=== PATIENT | male | born 1950 | race Caucasian/White ===

== ENCOUNTER 2020-09-09 13:50 | Emergency (ER) | payer MEDICARE, OTHER, SELFPAY ==
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
[2020-09-09 14:53] VITALS: BP 139/76; PULSE 62; RESP 16; TEMP 36.9; O2SAT 100
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
[2020-09-09] MEDS: HYDROcodone/acetaminophen (*CRX) 5-325 MG TABLET 1 TAB PO (16:56)
[2020-09-09 17:36] VITALS: BP 163/93; PULSE 60; RESP 16; O2SAT 96
== END 2020-09-09 17:39 | disposition home or self-care (01) ==
PROVIDERS: Emergency Provider Family Medicine
DX: S42.291A Other displaced fracture of upper end of right humerus, initial encounter for closed fracture (principal); V18.4XXA Pedal cycle driver injured in noncollision transport accident in traffic accident, initial encounter; Y93.55 Activity, bike riding
CPT/HCPCS: 73030; 99284; A4565; A9270

== ENCOUNTER 2021-06-16 16:42 | Emergency (ER) | payer MEDICARE, OTHER, SELFPAY ==
--- NOTE | 2021-06-16 16:50 | ED.EYEPROB ---
HPI - Eye Problem General Chief complaint: Eye Problems Stated complaint: Eye pain Time Seen by Provider: 06/16/21 16:50 Source: patient and RN notes reviewed History of Present Illness HPI Narrative: Patient is 70-year-old male who presents the urgent care with complaints of left eye irritation. Patient states that it started 1 week ago and he noticed some irritation in the right eye today. Patient denies of any vision change, eye pain, headache or nausea or vomiting. Patient denies of any recent coughing or sneezing. Patient denies of any known trauma to the eye. No other acute complaints. No acute distress noted. Patient aware of the plan of care. Some parts of this dictation were generated by voice recognition software and may contain typographical and/or grammatical inaccuracies. Related Data Home Medications Medication Instructions Recorded Confirmed carbamazepine 100 mg PO BID 09/09/20 09/09/20 dutasteride mg PO 06/16/21 tamsulosin mg PO 06/16/21 Allergies Allergy/AdvReac Type Severity Reaction Status Date / Time No Known Allergies Allergy Verified 09/09/20 16:21 Review of Systems Review of Systems: CONSTITUTIONAL: Denies fever, chills, or sweats. EYES: Reports of redness without pain to the bilateral eyes ENT: Denies rhinorrhea, congestion, sore throat, or otalgia. CARDIOVASCULAR: Denies chest pain, palpitations, or edema. RESPIRATORY: Denies cough or dyspnea. GASTROINTESTINAL: Denies abdominal pain, nausea, vomiting, or diarrhea. GENITOURINARY: Denies dysuria or hematuria. SKIN: Denies rash or itching. MUSCULOSKELETAL: Denies back pain, joint pain, or myalgia. NEUROLOGIC: Denies headache, numbness, or weakness. All other systems reviewed are negative, except as documented in HPI. PMFSH Social History Social History Gender identity (if verbalized by the patient): Male Comments At the time of my signature, I reviewed and agree with the nursing past medical, surgical, social, and family history. There is no relevant family history pertinent to the patient complaint. Exam Narrative: GENERAL: This is a well-nourished, well-developed patient, in no apparent distress. HEAD: normocephalic, atraumatic. EYES: PERRL. Mild erythemic bilateral conjunctiva with notable subconjunctival hemorrhage to 5:00 of the left eye. EARS: External ears normal NOSE: External nose normal with no obvious nasal discharge, nares without redness, no rhinorrhea. THROAT: Mucous membranes moist NECK: Neck supple CARDIOVASCULAR: Regular rate and rhythm without murmurs, gallops, or rubs. RESPIRATORY: Clear to auscultation. Breath sounds equal bilaterally. No wheezes, rales, or rhonchi. SKIN: warm, intact with no suspicious lesions or rash, good texture and turgor. NEURO: awake, alert, and oriented to person, place and time. There were no obvious focal neurologic abnormalities. EXTREMITIES: No clubbing, cyanosis, or edema. Course Course Level of Care: Express Care Visit Vital Signs Vital signs: Vital Signs Temperature 97.4 F L 06/16/21 16:51 Pulse Rate 77 06/16/21 16:51 Respiratory Rate 16 06/16/21 16:51 Blood Pressure 191/97 H 06/16/21 16:51 Pulse Oximetry 100 06/16/21 16:51 Temperature 97.4 F L 06/16/21 16:51 Pulse Rate 77 06/16/21 16:51 Respiratory Rate 16 06/16/21 16:51 Blood Pressure 191/97 H 06/16/21 16:51 Pulse Oximetry 100 06/16/21 16:51 Reviewed-patient is informed that they may have pre-hypertension or hypertension based on a blood pressure reading in the department. I recommend the patient call the primary care provider listed on their discharge instructions or a physician of their choice this week to arrange follow-up for further evaluation of possible pre-hypertension or hypertension. Recheck manual 165/87 MDM - Eye Problem MDM Narrative Medical decision making narrative: Advised patient to use the eyedrops to the bilateral ey
[2021-06-16 16:51] VITALS: BP 191/97; PULSE 77; RESP 16; TEMP 36.3; O2SAT 100
--- NOTE | 2021-06-16 16:58 | PC.NURSE ---
B/p manual re-check. 165/87
== END 2021-06-16 17:10 | disposition home or self-care (01) ==
PROVIDERS: Emergency Provider Nurse Practitioner Family
DX: H11.32 Conjunctival hemorrhage, left eye (principal)
CPT/HCPCS: 99213; G0463

== ENCOUNTER 2023-01-09 11:36 | Emergency (ER) | payer MEDICARE, OTHER, SELFPAY ==
[2023-01-09 11:48] VITALS: BP 127/80; PULSE 72; RESP 16; TEMP 36.8; O2SAT 98
[2023-01-09 11:50] VITALS: BP 127/80; PULSE 72; RESP 16; TEMP 36.8; O2SAT 98
--- NOTE | 2023-01-09 11:57 | ED.MALEGU ---
HPI - Male Genitourinary General Chief complaint: Urogenital-Male Stated complaint: bladder inf Time Seen by Provider: 01/09/23 11:57 Source: patient and RN notes reviewed Mode of arrival: ambulatory Limitations: no limitations History of Present Illness HPI Narrative: 71 y/o male presented for c/o blood in urine this morning. States the first void was red in color, and has subsequently turned brown. Endorses more frequent urination this week and noticeable frequency last night. Denies abdominal pain, flank pain, n/v/d/f/c. LBM this morning, normal. Hx renal stones. Related Data Home Medications Medication Instructions Recorded Confirmed dutasteride 0.5 mg capsule 0.5 mg PO DAILY 06/16/21 01/09/23 tamsulosin 0.4 mg capsule 0.4 mg PO BID 06/16/21 01/09/23 hydrochlorothiazide 12.5 mg capsule 12.5 mg PO DAILY 01/09/23 01/09/23 Allergies Allergy/AdvReac Type Severity Reaction Status Date / Time No Known Allergies Allergy Verified 01/09/23 11:48 Review of Systems Review of Systems: CONSTITUTIONAL: Denies body aches, fever, chills, or sweats. CARDIOVASCULAR: Denies chest pain, palpitations, or edema. RESPIRATORY: Denies cough or dyspnea. GASTROINTESTINAL: Denies abdominal pain, nausea, vomiting, or diarrhea. GENITOURINARY: Reports hematuria, frequency, denies dysuria, urgency, flank pain SKIN: Denies rash, itching, or wounds. MUSCULOSKELETAL: Denies back pain or myalgia. [facility] Past Medical History Medical History (Updated 01/09/23 @ 12:21 by Elana Lucia APRN) Trigeminal neuralgia of right side of face Surgical History Surgical History (Updated 01/09/23 @ 12:18 by Elana Lucia APRN) Hx of brain surgery Social History Social History Gender identity (if verbalized by the patient): Male Comments At time of signature, I have reviewed and agree with nursing past medical, surgical, social and family history unless otherwise noted. Please see nursing chart for further information. There is no relevant family history pertinent to the presenting complaint Exam Narrative: GENERAL: Well-appearing and in no acute distress. HEAD: Normocephalic EYES: EOMI. . ENT: Mucous membranes pink and moist. NECK: Normal AROM. Supple. CHEST: No respiratory distress. Clear to auscultation. HEART: Regular rate and rhythm. ABDOMEN: Soft, nontender, nondistended, normal active bowel sounds. No CVA tenderness SKIN: Warm, dry, no rash. NEURO: No focal deficits. Alert and oriented x3. Gait steady. PSYCH: Normal affect. Course Course Emergency Course: Patient is aware of diagnosis, understands and agrees to treatment plan. Anticipatory guidance given. Patient agrees to follow-up as directed and is aware of reasons to seek care at the emergency department. Portions of this record may have been created with voice recognition software Level of Care: Express Care Visit Vital Signs Vital signs: Vital Signs Temperature 98.3 F 01/09/23 11:48 Pulse Rate 72 01/09/23 11:48 Respiratory Rate 16 01/09/23 11:48 Blood Pressure 127/80 01/09/23 11:48 Pulse Oximetry 98 01/09/23 11:48 Temperature 98.3 F 01/09/23 11:50 Pulse Rate 72 01/09/23 11:50 Respiratory Rate 16 01/09/23 11:50 Blood Pressure 127/80 01/09/23 11:50 Pulse Oximetry 98 01/09/23 11:50 Reviewed MDM - Male Genitourinary MDM Narrative Medical decision making narrative: Discussed physical exam findings. Urine 3+ blood, 2+ protein. Advised ER transfer for painless hematuria. Differential Diagnosis Differential diagnosis: Likely urinary tract infection, urethritis and other (renal stones, bladder mass) Lab Data Labs: Urine Glucose Negative Reference Range: Negative Urine Bilirubin Negative Reference Range: Neg
== END 2023-01-09 12:20 | disposition short-term general hospital (02) ==
PROVIDERS: Emergency Provider Nurse Practitioner Family
DX: R31.9 Hematuria, unspecified (principal)
CPT/HCPCS: 81003; 87086; 99213; G0463

== ENCOUNTER 2023-01-09 12:40 | Emergency (ER) | payer MEDICARE, OTHER, SELFPAY ==
[2023-01-09] VITALS (20 sets, daily range): BP systolic 142–161; BP diastolic 78–98; PULSE 49–67; RESP 12–31; TEMP 36.8; O2SAT 95–100
--- NOTE | ~2023-01-09 | CT_ITS ---
EXAMINATION: CT abdomen pelvis wo con DATE: 01/09/2023 15:03 INDICATION: flank pain and hematuria, h/o kidney stones TECHNIQUE: Computed tomography (CT) of the abdomen and pelvis was performed without intravenous contr ast. Automated exposure control and iterative reconstruction technique were employed. The dose-length product was 161.01 mGy-cm. COMPARISON: 04/09/2019. FINDINGS: Lower thorax: Senescent changes in the lungs. Bibasilar scar. Liver: Normal. Biliary/Gallbladder: Gallbladder is partially contracted. No bile duct dilation. Pancreas: No mass or duct dilation. Spleen: Granulomatous calcifications. Adrenals:No mass. Kidneys: Several bilateral punctate nonobstructing calculi. Subcentimeter left lower pole hyperdensit y, likely hemorrhagic or proteinaceous cyst. Prominent left renal pelvis, unchanged, likely due to ch ronic mild UPJ obstruction. GI tract: No small or large bowel dilation. Normal appendix. Mesentery/Peritoneum: No ascites, mass, or free air. Retroperitoneum: No mass. Atherosclerotic abdominal aortic and/or arterial calcifications. 1.8 cm lef t renal artery aneurysm. Pelvis: Bladder wall thickening. Enlarged prostate. Soft Tissues: Soft tissues and body wall unremarkable. Bones: No acute osseous finding. IMPRESSION: No acute abdominopelvic process detected. Specifically there is no evidence of obstructive urolithias is. Stable mild chronic left UPJ obstruction. Bladder wall thickening may be secondary to chronic outlet obstruction from prostatomegaly or cystiti s. 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 Reviewed, dictated and finalized at location K. IMPRESSION: No acute abdominopelvic process detected. Specifically there is no evidence of obstructive urolithiasis. Stable mild chronic left UPJ obstruction. Bladder wall thickening may be secondary to chronic outlet obstruction from pro statomegaly or cystitis. 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
[2023-01-09 13:00] LABS: Basophils Percent Auto 0.2 % (0.2-1.2); Eosinophils Percent Auto 0.2 % (0-4.4); Hematocrit 41.9 % (42.0-52.0); Hemoglobin 14.9 g/dL (14.0-18.0); Immature Granulocyte Absolute 0.03 K/mm3 (0.00-0.031); Immature Granulocyte Percent A 0.5 % (0-0.5); Lymphocytes Absolute Auto 1.56 K/mm3 (0.9-3.2); Lymphocytes Percent Auto 25.4 % (18.3-44.2); Mean Corpuscular HGB Conc 35.6 g/dl (32-36); Mean Corpuscular Volume 90.1 fl (80-100); Mean Platelet Volume 8.7 fl (7.4-10.4); Monocytes Absolute Auto 0.4 K/mm3 (0.1-0.6); Monocytes Percent Auto 7.2 % (2.6-8.5); Neutrophils Absolute Auto 4.1 K/mm3 (1.3-6.7); Neutrophils Percent Auto 66.5 % (45.5-73.1); Platelet Count Result 246 k/mm3 (150-375); Red Blood Count 4.65 M/mm3 (4.6-6.20); Red Cell Distribution Width 11.9 % (11.5-14.5); White Blood Count 6.2 K/mm3 (4.5-10.0)
[2023-01-09 13:17] LABS: Alanine Aminotransferase 23 U/L (6-50); Albumin Level 4.5 g/dL (3.5-5.1); Alkaline Phosphatase 78 U/L (38-126); Anion Gap 6 mmol/L (8-16); Aspartate Amino Transferase 25 U/L (17-59); Bilirubin,Total 0.5 mg/dL (0.2-1.3); Blood Urea Nitrogen 17 mg/dL (9-20); Calcium 8.9 mg/dL (8.4-10.2); Carbon Dioxide 31 mmol/L (22-30); Chloride 94 mmol/L (98-107); Estimated CRCL calculation 70 ml/min; Estimated Glomerular Filt Rate > 60; Glucose 109 mg/dL (65-110); Sodium 131 mmol/L (137-145)
[2023-01-09 15:31] LABS: Appearance Urine Cloudy (Clear); Bacteria Urine None Seen /hpf; Bilirubin Urine Negative (Negative); Blood Urine 3+ (Negative); Color Urine Yellow (Yellow); Glucose Urine UA Negative (Negative); Ketones Urine Negative (Negative); Leukocyte Esterase Ur Trace LEU/UL (Negative); Nitrate Urine Negative (Negative); Non Pathogenic Casts 0-2; Protein Urine Trace mg/dL (Negative); RBC Urine >100 /hpf (0-2); Specific Grav Ur 1.015 (1.001-1.035); Squamous Epithelial Cell Urine None seen /hpf (Few); Urobilinogen Urine 0.2 mg/dL (<2.0); WBC Urine 0-5 /hpf; pH Urine 6.5 (5.0-9.0)
[2023-01-09 15:32] LABS: Add Urine Microscopic? YES
[2023-01-09] MEDS: CEPHALEXIN 500 MG CAPSULE PO (17:19)
--- NOTE | 2023-01-09 18:41 | ED.MALEGU ---
HPI - Male Genitourinary General Chief complaint: Urogenital-Male Stated complaint: hematuria Time Seen by Provider: 01/09/23 14:24 History of Present Illness HPI Narrative: Patient presents here with hematuria, he states that his urine is slightly tinged pink, he states that last night he had been going much more frequently than usual, going 4-5 times a night. He has a history of kidney stones but denies any pain to his flank. Related Data Home Medications Medication Instructions Recorded Confirmed dutasteride 0.5 mg capsule 0.5 mg PO DAILY 06/16/21 01/09/23 tamsulosin 0.4 mg capsule 0.4 mg PO BID 06/16/21 01/09/23 hydrochlorothiazide 12.5 mg capsule 12.5 mg PO DAILY 01/09/23 01/09/23 Allergies Allergy/AdvReac Type Severity Reaction Status Date / Time No Known Allergies Allergy Verified 01/09/23 11:48 Review of Systems Review of Systems: CONST: No fever. HEENT: No sore throat C/V: No chest pain RESP: No cough GI: No abdominal pain : Hematuria and increased frequency. M/S: No joint pain. SKIN: No rash. NEURO: [No headache or focal numbness or weakness] PSYCH: [No depression] [facility] Past Medical History Medical History (Updated 01/09/23 @ 17:15 by Chanelle Jolly MD) Trigeminal neuralgia of right side of face Surgical History Surgical History (Updated 01/09/23 @ 12:18 by Elana Lucia APRN) Hx of brain surgery Social History Social History Gender identity (if verbalized by the patient): Male Exam Narrative: EXAMINATION OF ORGAN SYSTEMS/BODY AREAS: Constitutional: Vital signs per nursing GENERAL:[No acute distress, non-toxic appearing.] HEAD: Normal with no signs of head trauma. EYES: EOMI, conjunctiva normal ENT: Hearing grossly intact LUNGS: Nonlabored breathing. HEART: [Regular rate and rhythm] ABD: [Soft], [nontender to palpation] EXT: Normal range of motion SKIN: [No rashes or lesions.] NEURO: [Alert and oriented x 3. No gross focal sensory or strength deficits.] PSYCH: Normal affect Course Vital Signs Vital signs: Vital Signs Temperature 98.2 F 07/29/23 12:42 Pulse Rate 67 01/09/23 12:42 Respiratory Rate 18 01/09/23 12:42 Blood Pressure 142/78 H 01/09/23 12:42 Pulse Oximetry 100 01/09/23 12:42 Oxygen Delivery Room Air 01/09/23 12:42 Temperature 98.2 F 01/09/23 12:42 Pulse Rate 59 L 01/09/23 17:10 Respiratory Rate 14 01/09/23 17:10 Blood Pressure 143/84 H 01/09/23 17:20 Pulse Oximetry 98 01/09/23 17:10 Oxygen Delivery Room Air 01/09/23 12:42 MDM - Male Genitourinary MDM Narrative Medical decision making narrative: 42-year-old male with history of kidney stones presenting hematuria and increased frequency without any pain, differential includes nephrolithiasis, UTI, malignancy. Labs notable for UA with large amount of RBCs/blood, without any obvious WBCs or bacteria, labs otherwise unremarkable. He is not having issues with retention here, No severe hemorrhage, CT obtained which does not show any obvious stone however it does show possible cystitis, and as well as a left renal artery saccular aneurysm. Patient lives in [place] and wants to follow-up there, I did make a call out to urology and vascular surgery there however have not received a call back, the patient and at bedside would prefer to go home at this time and they will make their own arrangements and I do feel this is reasonable as he has no pain whatsoever nor neurovascular symptoms and this is likely a chronic issue. Return precautions are provided and I will start him on antibiotics in case this is hemorrhagic cystitis. Patient agreeable to this Lab Data 01/09/23 12:52 01/09/23 12:52 Labs: Lab Results 01/09/23 01/09/23 Range/Units 12:52 14:24 WBC 6.2 (4.5-10.0) K/mm3 RBC 4.65 (4.6-6.20) M/mm3 Hgb 14.9 (14.0-18.0) g/dL Hct 41.9 L (42.0-52
== END 2023-01-09 17:37 | disposition home or self-care (01) ==
PROVIDERS: Emergency Medicine; Emergency Provider Emergency Medicine
DX: I72.2 Aneurysm of renal artery (principal); R31.9 Hematuria, unspecified; Z87.442 Personal history of urinary calculi
CPT/HCPCS: 36415; 74176; 80053; 81001; 81003; 85025; 87086; 99284; A9270

== ENCOUNTER 2025-02-12 17:36 | Emergency (ER) | payer MEDICARE, OTHER, SELFPAY ==
--- OUTSIDE RECORDS SUMMARY | 2024-05-19 04:30 | XMS_ITS ---
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 Encounters Encounter Location Date Provider Diagnosis [facility] [address] [place] [address] 05/19/2024 Antony Lenz Right foot pain M79.671 Assessments Encounter Date Diagnosis (ICD Code) Assessment Notes Treatment Notes Treatment Clinical Notes Section Notes 05/19/2024 Right foot pain (ICD-10 - M79.671) Plan Of Treatment No Information Progress Notes * Rudy RIOS SDOB: [birth year] (74 yo M)Acc No.[id number]:05/19/2024 Initial Office Note Patient: Rudy ANGUIANO Provider: Areli Lenz DPM :1950 A ge:73 Y S ex:Male Date:05/19/2024 Address:[address] Pcp:Eugene Aguirre Subjective: * Chief Complaints: * 1 . 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 * Medical History: Objective: * Vitals: Assessment: * Assessment: 1. R ight foot pain - M79.671 Plan: * Treatment: * * Billing Information: * Visit Code: * Procedure Codes: * Electronic signature of Tuyet Lenz DPM on 02/12/2025 at 04:55 PM CDT Sign off status: Pending * Provider: Areli Lenz DPM Date: 1 07/20/2023 Generated for Isabella doss/Franklyn/Yoon on: 0 02/12/2025 04:55 PM CDT
--- OUTSIDE RECORDS SUMMARY | 2025-02-12 17:30 | XMS_ITS | Encounter Summary ---
Author Organization [facility] Healthcare Address [address] [place] [id number] Care Team Providers Care Javascript Programmer Name Role Phone Eugene Aguirre MD Primary Care Provider [phone] Reason for Visit * Reason Comments Foreign Body Right hand, fishing hook right hand. Encounter Details Date Type Department Care Team (Late st Contact Info) Description 02/12/2025 5:30 PM CDT Office Visit [facility] at [address] [phone] [place] [address] Foreign body of right hand, initial encounter (Primary Dx) Social History Tobacco Use Types Packs/Day Years Used Date Smoking Tobacco: Former Cigarettes 0.5 7 1 968 - 1975 Smokeless Tobacco: Former Chew Quit: 2006 Alcohol Use Standard Drinks/Week Comments Yes 7 (1 standard drink = 0.6 oz pur e alcohol) AUDIT-C Answer Date Recorded Q1: How often do you have a drink containing alc ohol? Patient declined 05/04/2022 Q2: How many drinks containi ng alcohol do you have on a typical day when you are drinking? Patient declined 05/04/2022 Q3: How often do you have si x or more drinks on one occasion? 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 Gender Identity Male 01/31/2021 7:26 PM CDT Sexual Orientation Not on file Occupation Industry Job Start Date Job End Date retired Not on file Not on file Not on file documented as of this encounter Last Filed Vital Signs Vital Sign Reading Time Taken Comments Blood Pressure 164/94 02/12/2025 5:02 PM CDT Pulse 60 02/12/2025 5:02 PM CDT Temperature 36.8 C (98.3 F) 02/12/2025 5:02 PM CDT Respiratory Rate 18 02/12/2025 5:02 PM CDT Oxygen Saturation 98% 02/12/2025 5:02 PM CDT Inhaled Oxygen Concentration - - Weight 61.2 kg (135 lb) 02/12/2025 5:02 PM CDT Height - - Body Mass Index 21.79 03/09/2022 2:56 PM CDT documented in this encounter Plan of Treatment Not on file documented as of this encounter Visit Diagnoses Diagnosis Foreign body of right hand, initial encounter- Primary documented in this encounter Care Teams Javascript Programmer Relationship Specialty Start Date End Date Eugene Aguirre MD [address] [place] [id number] PCP - General Family Practice 08/09/18 documented as of this encounter
--- OUTSIDE RECORDS SUMMARY | 2025-02-12 17:37 | XMS_ITS | Encounter Summary ---
Author Organization [facility] [facility] Address [address] [place] [address] Care Team Providers Care Graphics Editor Name Role Phone Eugene Osuna MD Primary Care Provider [phone]- [phone] Encounter Details Date Type Department Care Team (Latest Contact Info) Description 01/09/2013 Historical Office Visit [facility] [address] [place] [address] Eugene Osuna MD [address] [place] [address] Calculus of kidney; Impacted cerumen Social History Tobacco Use Types Packs/Day Years Used Date Smoking Tobacco: Never Assessed Sex and Gender Information Value Date Recorded Sex Assigned at Not on file 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 Gender Identity Male 12/26/2020 12:45 PM CDT Sexual Orientation Not on file documented as of this encounter Last Filed Vital Signs Vital Sign Reading Time Taken Comments Blood Pressure 122/78 01/09/2013 10:58 AM CDT Pulse 64 01/09/2013 10:58 AM CDT Temperature 37 C (98.6 F) 01/09/2013 10:58 AM CDT Respiratory Rate 16 01/09/2013 10:58 AM CDT Oxygen Saturation - - Inhaled Oxygen Concentration - - Weight 64.6 kg (142 lb 6 oz) 01/09/2013 10:58 AM CDT Height 170.2 cm (5' 7) 01/09/2013 10:58 AM CDT Body Mass Index 22.3 01/09/2013 10:58 AM CDT documented in this encounter Progress Notes * Eugene Osuna MD - 01/09/2013 10:58 AM CDT Nursing Chief Complaint/Reason For Encounter yearly check up; aviator requirement, left year fullness Intake Note Patient ambulatory in office setting. Quality Metrics Influenza vaccination up-to-date? Yes. Colorectal screening up-to-date? Yes. Over the past 2 weeks, have you felt little interest or pleasure in doing things? No. Over the past 2 weeks, have you felt down, depressed, or hopeless? No. Subjective HPI History kidney stone severe he has to get a metabolic workup a KUB as well as urinalysis to complete his slight exam he denies any pain no abdominal pain no flank pain no urinary symptoms no hematuria Allergies Reviewed: Jan 09 2013 NKA Past Med/Surg History Procedures Colonoscopy (2) - Dr Herrera; Last Performed: 01/23/2011 Health Maintenance Immunizations Flu vacc, split >=3yrs, IM, preserv free; Dates: 03/22/2011; 03/22/2011; 04/14/2012 Zoster (Zostavax - shingles) vacc, live, [place]; Dates: 12/03/2011 Med List last modified Jan 09 2013 Reviewed: Jan 09 2013 hydrochlorothiazide 12.5 mg capsule, 1 cap(s) by mouth 2 times/day, 180 capsule taking Preferred Pharmacy [facility] [[address]] Fax: [phone] Family History last modified Mar 02 2005 Reviewed: Jan 09 2013 Positive Family History for: Alcoholism Colorectal cancer: Parent Hypertension Social History last modified Jan 09 2013 Reviewed: Jan 09 2013 Tobacco Former smoker; Never used smokeless; Tobacco reviewed with patient 01/09/2013 Alcohol Use Current alcohol user Caffeine Use Uses caffeine; Type: coffee Diet/Nutrition Average diet Drug Misuse No reported history Exercise Exercises 5 or more days/wk Home Safety Risk No significant home safety risk factors Personal: Ethnicity: Not ; Race: WHITE; 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; 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; Marital status: ; 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; 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: [employer] Vital Signs Temp: 98.6??F (Skin) [37.0??C] HR: 64 bpm RR: 16 Blood Pressure: 122/78 mmHg (R arm sitting Adult-std cuff) Height: 67 in [170.18 cm] Weight:142 lb 6 oz lbs [64.58 kg ] BMI: 22.3 BSA: 1.75 Date/Time: Jan 09 2013 10:58 Physical Exam Constitutional: Alert, No acute distress Cardiovascular: Normal S1, Normal S2, No S3 Respiratory: Normal respiratory effort, Breath sounds normal no rales or rhonchi, No wheezing heard Gastrointestinal No CVA tenderness Lab Results 01/09/2013 Urine w/o micro - FRANCO Appearance YELLOW/CLEAR Glucose NEG mg/dl Bilirubin NEG n=negative Ketones NEG mg/dl Specific gravity 1.015 Blood NEG n=negative pH 6.5 Protein NEG mg/dl Urobilinogen 0.2 mg/dl Nitrite NEG n=negative Leukocytes NEG n=negative Assessment Assessments CALCULUS OF KIDNEY (ICD-9 billing code: 592.0) Nephrolithiasis (kidney stone) (ICD-9 billing code: 592.0) Billing Detail Review and/or order of lab tests; Review and/or order of test in the radiology section of CPT Plan Lab Orders Basic Metabolic Panel (BMP) (Resulted - CALCULUS OF KIDNEY) Urine Dipstick (Urinalysis w/o micro) - FRANCO (FRANCO Resulted - CALCULUS OF KIDNEY) Procedure Orders XR Abdomen 1 View (Supine - KUB) ([id number]) (Ordered - Nephrolithiasis (kidney stone)), Faxed to [facility] [phone] by Miriam IBARRA on Jan 09 2013 11:29: Patient Education Information: Verbal information given to patient. Patient receptive and voiced understanding. No review needed. KUB ordered BMP ordered urinalysis within normal limits followup when necessary one year see letterwritten for pt Contributors to this Visit Note Documenting Clinician: Shane CASILLAS - Staff Type: Office sta Time: Jan 09 2013 10:58 Action: Mel CASILLAS - Staff Type: Office sta Time: Jan 09 2013 11:04 Action: Laurie IBARRA - Staff Type: RN Time: Jan 09 2013 11:29 Action: Edit Shane OSUNA - Staff Type: Time: Jan 10 2013 08:06 Action: Edit Shane OSUNA - Staff Type: Time: Jan 10 2013 08:06 Action: Sign documented in this encounter Plan of Treatment Not on file documented as of this encounter Visit Diagnoses Diagnosis Calculus of kidney Impacted cerumen documented in this encounter Care Teams Graphics Editor Relationship Specialty Start Date End Date Eugene Osuna MD PCP - General Family Medicine 10/31/13 documented as of this encounter
--- OUTSIDE RECORDS SUMMARY | 2025-02-12 17:37 | XMS_ITS | Encounter Summary ---
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 Gender Identity Male 12/26/2020 12:45 PM CDT Sexual Orientation Not on file documented as of this encounter Progress Notes * Eugene Osuna MD - 04/05/2013 6:22 PM CDT Nursing Intake Note INFLUENZA IMMUNIZATION UPDATE Immunizations: Patient meets criteria for vaccine indications, No vaccine contraindications found, No vaccine precautions found, Questions answered and verbal consent given for vaccine, No reaction Standing Orders for Administering Influenza Vaccine to Adults Purpose: To reduce morbidity and mortality from influenza by vaccinating all adults who meet the criteria established by the Centers for Disease Control and Preventions Advisory Committee on Immunization Practices. Policy: Under these standing orders, eligible nurses and other healthcare professionals (e.g., pharmacists), where allowed by state law, may vaccinate patients who meet any of the criteria below. Procedure: 1. Identify adults with no history of influenza vaccination for the current influenza season. 2. Screen all patients for contraindications and precautions to influenza vaccine: a. Contraindications: a serious systemic or anaphylactic reaction to a prior dose of the vaccine orto any of its compo- nents. For a list of vaccine components, go to www.cdc.gov/vaccines/pubs/pinkbook/downloads/appendices/B/ dcfgtkbby-hugio-2.pdf. Do not give live attenuated influenza vaccine (LAIV; nasal spray) to a person who has a history of either an anaphylactic or non- anaphylactic hypersensitivity to eggs, ; who is , is age 50 years or older, or who has chronic pulmonary (including asthma), cardiovascular (excluding hypertension), renal, hepatic, neurologic/ neuromuscular, [place] tologic, or metabolic (including diabetes) disorders; immunosuppression, including that caused by medications or HIV. b. Precautions: moderate or severe acute illness with or without fever; history of Guillain Medrano?? syndrome within 6 weeks of a previous influenza vaccination; for LAIV only, close contact with an immunosuppressed person when the person requires protective isolation, receipt of influenza antivirals(e.g., amantadine, rimantadine, zanamivir, or oselta- mivir) within the previous 48 hours or possibility of use within 14 days after vaccination. c. Other considerations: onset of hives only after ingesting eggs: healthcare providers familiar with the potential manifes- tations of egg allergy should administer TIV and observe patient for 30 minutes after receipt of the vaccine for signs of a reaction. 3. Provide all patients with a copy of the most current federal Vaccine Information Statement (VIS). You must document in the patients medical record or office log, the publication date of the VIS and the date it was given to the patient. Pro- vide non-Albanian speaking patients with a copy of the VIS in their stebbins language, if available and preferred; these can be found at www.immunize.org/vis. 4. Administer influenza vaccine as follows: a) For adults of all ages, give 0.5 mL of injectable trivalent inactivated influ- kenneth vaccine (TIV-IM) intramuscularly (22-25g, 1-1?? needle) in the deltoid muscle. (Note: A e needle may be used for adults weighing less than 130 lbs [<60 kg] for injection in the deltoid muscle only if the subcutaneous tissue is not bunched and the injection is made at a 90 degree angle.) b) For healthy adults younger than age 50 years, give 0.2 mL of intranasal LAIV; 0.1 mL is sprayed into each nostril while the patient is in an upright position. c) For adultsage 18 through 64 years, give 0.1 ml TIV-ID intradermally by inserting the needle of the microinjection system at a 90 degree angle in the deltoid muscle. d) For adults age 65 years and older, give 0.5 mL of high-dose TIV-IM intramuscularly (22-25g, 1-1?? needle) in the deltoid muscle. 5. Document each patients vaccine administration information and follow up in the following places: a. Medical chart: Record the date the vaccine was administered, the heel molder and lot number, the vaccination site and route, and the name and title of the person administering the vaccine. If vaccine was not given, record the reasons(s) for non-receipt of the vaccine (e.g., medical contraindication, patient refusal). b. Personal immunization record card: Record the date of vaccination and the name/location of the administering clinic. 6. Be prepared for management of a medical emergency related to the administration of vaccine by having a written emergency medical protocol available, as well as equipment and medications. 7. Report all adverse reactions to influenza vaccine to the federal Vaccine Adverse Event ReportingSystem (VAERS) at www.vaers.hhs.gov or . VAERS report forms are available at www.vaers.hhs.gov. This policy and procedure shall remain in effect for all patients of the [facility] until rescinded or until revised (date). Medical Directors signature: Effective date: www.immunize.org/catg.d/p3074.pdf Item #[id number] (01/23) Technical content reviewed by the Centers for Disease Control and Prevention Immunization Action [place] [address] www.immunize.org www.vaccineinformation.org Subjective Health Maintenance Immunizations Flu vacc, split >=3yrs, IM, preserv free; Dates: 03/22/2011; 03/22/2011; 04/14/2012 Zoster (Zostavax - shingles) vacc, [facility], [place]; Dates: 12/03/2011 Allergies NKA Med List hydrochlorothiazide 12.5 mg capsule, 1 cap(s) by mouth 2 times/day, 180 capsule - Preferred Pharmacy [facility] [[address]] Fax: [phone] Social History last modified Jan 09 2013 Tobacco Former smoker; Never used smokeless; Tobacco reviewed with patient 03/16/2013 Alcohol Use Current alcohol user Caffeine Use Uses caffeine; Type: coffee Diet/Nutrition Average diet Drug Misuse No reported history Exercise Exercises 5 or more days/wk Home Safety Risk No significant home safety risk factors Personal: Ethnicity: Not ; Race: WHITE; 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; Primary language: TAMAZIGHT; Marital status: ; 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; Employer: [employer] Assessment Assessments Billing Detail Review and/or order of test in the medicine section of CPT Plan Immunization Orders Flu vacc, split >=3yrs, IM, preserv free (Requested) Immunization Orders Flu vacc, split >=3yrs, IM, preserv free (Requested) Contributors to this Visit Note Documenting Clinician: Shane PAEZ - Staff Type: Office staff Time: Apr 05 2013 18:22 Action: Mel PAEZ - Staff Type: Office staff Time: Apr 05 2013 18:23 Action: Laurie OSUNA - Staff Type: MD Time: Apr 06 2013 08:54 Action: Sign documented in this encounter Plan of Treatment Not on file documented as of this encounter Visit Diagnoses Not on filedocumented in this encounter Care Teams Diesel Plant Operator Relationship Specialty Start Date End Date Eugene Osuna MD PCP - General Family Medicine 10/31/13 documented as of this encounter
--- OUTSIDE RECORDS SUMMARY | 2025-02-12 17:37 | XMS_ITS | Patient Health Record ---
Author Organization [facility] Address [address] [place] [address] Care Team Providers Care Food Beverage Supervisor Name Role Phone Eugene Aguirre Primary Care Provider Antony Canales Unavailable [phone] Allergies No Known Allergies Reason For Referral No Information Medications Medication SIG (Take, Route, Frequency, Duration) Notes Start Date End Date Status Multi-Vitamin Oral daily; Duration: 0 1 (one) by Oral route daily 08/04/2018 Active Saw [place] 500 MG Oral daily; Duration: 0 take 1 (one) Capsule by Oral route daily 08/04/2018 Active Flomax 0.4 MG Oral daily; Duration: 0 take 1 (one) Capsule by Oral route daily 02/04/2021 Active Glucosamine 1500 Complex 1,500 mg Oral daily; Duration: 0 take 1 (one) Tablet by Oral route daily *Pick strength-form from [employer] for eRX* 08/04/2018 Active Problems Problem Type SNOMED Code ICD Code Onset Dates Problem Status W/U Status Risk Notes Problem Lumbar radiculopathy (262406526) Lumbar radiculopathy (M54.16) Active confirmed Problem Displacement of lumbar intervertebral disc without myelopathy (53441085) Protrusion of lumbar intervertebral disc (M51.26) Active confirmed Problem Lumbosacral spondylosis without myelopathy (43254931) Other spondylosis, lumbar region (M47.896) 01/07/20 22 Active confirmed Problem Lumbar radiculopathy (399423199) Radiculopathy, lumbar region (M54.16) 11/30/19 20 Active confirmed Problem Low back pain (689515938) Low back pain (M54.5) 11/30/19 20 Active confirmed Problem Pain in left leg (367963024) Pain in left leg (M79.605) 05/31/20 19 Active confirmed Problem Postoperative care (905535266) Encounter for other specified surgical aftercare (Z48.89) 10/05/19 21 Active confirmed Problem Neurogenic claudication (028280093) Spinal stenosis, lumbar region with neurogenic claudication (M48.062) 01/07/20 22 Active confirmed Problem Closed fracture of upper end of humerus (13223099) Unspecified fracture of upper end of right humerus (initial encounter for closed fracture) (S42.201A) 09/12/19 21 Active confirmed Problem Enthesopathy of hip region (68288430) Trochanteric bursitis (right hip) (M70.61) 08/04/19 19 Active confirmed Problem Strain of other specified muscles, fascia and tendons at thigh level (left thigh, initial encounter) (S76.812A) 05/31/20 19 Active confirmed Plan Of Treatment No Information Insurance Providers Payer Name Payer Address Payer Phone Subscriber Number Group Number Insured Name Patient Relationship to Insured Coverage Start Date Coverage End Date Medicare Part B [address] [place], [place] [id number] Rudy Qureshi Self - patient is the insured 5 [facility] Claims [address] [place] [address] [id number] Rudy Qureshi Self - patient is the insured 5 5 [employer] [address] [place] [address] [id number] Rudy Qureshi Self - patient is the insured 5 Medications Administered Medication Instructions Date of Administration Dosage Notes BUPivacaine HCl 04/20/2022 4 mL BUPivacaine HCl 01/04/2023 2 mL Sodium Chloride (PF) 01/04/2023 2 mL Lidocaine HCl 04/20/2022 8 mL Lidocaine HCl 01/04/2023 8 mL Kenalog-40 04/20/2022 2 mL Kenalog-40 01/04/2023 2 mL Omnipaque 04/20/2022 3 mL Omnipaque 01/04/2023 2 mL Medical (General) History Medical History History ICD Code RENAL DISORDERS, Surgical History Surgery Date(Month/Year) surgical / procedural No surgical / proc edural history
--- OUTSIDE RECORDS SUMMARY | 2025-02-12 17:37 | XMS_ITS | Encounter Summary ---
Author Organization [employer] [facility] Address [address] [place] [address] Care Team Providers Care Manufacturing Millwright Name Role Phone Eugene Osuna MD Primary Care Provider +1- [phone] Encounter Details Date Type Department Care Team (Latest Contact Info) Description 09/28/2013 Historical Office Visit [facility] [place] [address] [place] [address] Eugene Osuna MD [address] [place] [address] Prostatitis, unspecified Social History Tobacco Use Types Packs/Day Years Used Date Smoking Tobacco: Never Assessed Sex and Gender Information Value Date Recorded Sex Assigned at Not on file 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 Gender Identity Male 12/26/2020 12:45 PM CDT Sexual Orientation Not on file documented as of this encounter Last Filed Vital Signs Vital Sign Reading Time Taken Comments Blood Pressure 124/80 09/28/2013 11:00 AM CDT Pulse 80 09/28/2013 11:00 AM CDT Temperature 36.9 C (98.4 F) 09/28/2013 11:00 AM CDT Respiratory Rate 16 09/28/2013 11:00 AM CDT Oxygen Saturation - - Inhaled Oxygen Concentration - - Weight 61.2 kg (135 lb) 09/28/2013 11:00 AM CDT Height - - Body Mass Index 21.14 01/09/2013 10:58 AM CDT documented in this encounter Progress Notes * Eugene Osuna MD - 09/28/2013 11:00 AM CDT Nursing Chief Complaint/Reason For Encounter C/O SOME URINARY FREQENCY Subjective HPI Patient with slight increased urination denies any dysuria no fever he has had some slight discomfort in growing area he denies any retrograde ejaculation he denies any blood in ejaculate he denies any blood in urine Allergies Reviewed: Sep 28 2013 NKA Past Med/Surg History Procedures Colonoscopy (2) - Dr Herrera; Last Performed: 01/23/2011 Health Maintenance Immunizations Flu vacc, split >=3yrs, IM, preserv free; Dates: 03/22/2011; 03/22/2011; 04/14/2012; 04/05/2013 Zoster (Zostavax - shingles) vacc, [place], [place]; Dates: 12/03/2011 Med List last modified Sep 28 2013 Reviewed: Sep 28 2013 hydrochlorothiazide 12.5 mg capsule, 1 cap(s) by mouth 2 times/day, 180 capsule taking (ONCE A DAY) Preferred Pharmacy [facility] [[address]] Fax: [phone] Family History last modified Sep 28 2013 Reviewed: Sep 28 2013 Positive Family History for: Alcoholism Colorectal cancer: Parent Hypertension Smoking tobacco Social History last modified Sep 28 2013 Reviewed: Sep 28 2013 Tobacco Former smoker; Never used smokeless; Tobacco reviewed with patient 09/28/2013 Alcohol Use Current alcohol user Caffeine Use Uses caffeine; Type: coffee Cancer Environmental Risk (other than tobacco) No known environmental risk factors for cancer Diet/Nutrition Average diet Drug Misuse No reported history Exercise Exercises 5 or more days/wk Home Safety Risk No significant home safety risk factors Infectious Exposure Risk No significant infectious disease risk factors Personal: Ethnicity: Not ; Race: WHITE; 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; Primary language: QATARI; Marital status: ; 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; 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: [employer] Vital Signs Temp: 98.4??F (Skin) [36.9??C] HR: 80 bpm RR: 16 Blood Pressure: 124/80 mmHg (L arm sitting Adult-std cuff) Weight:135 lb 0 oz lbs [61.235 kg ] BMI: 21.1 BSA: 1.711 (Height value used from 01/09/2013) Date/Time: Sep 28 2013 11:00 Physical Exam Constitutional: Alert, No acute distress Cardiovascular: Normal S1, Normal S2, No S3 Respiratory: Normal respiratory effort, Breath sounds normal no rales or rhonchi, No wheezing heard Genitourinary male: No penile lesions, Normal size and shape of epididymis, Normal testicular size and shape Integumentary: Skin warm and dry, Skin color normal, Rashes not found Lab Results 09/28/2013 Urine w/o micro - FRANCO Appearance YELLOW &CLEAR Glucose NEG mg/dl Bilirubin NEG n=negative Ketones NEG mg/dl Specific gravity 1.010 Blood NEG n=negative pH 6.5 Protein NEG mg/dl Urobilinogen 0.2 mg/dl Nitrite NEG n=negative Leukocytes NEG n=negative Assessment Assessments Urinary frequency (ICD-9 billing code: 788.41) Billing Detail Medication Management: New/current prescription meds Review and/or order of lab tests Plan Lab Orders Urine Dipstick (Urinalysis w/o micro) - FRANCO (FRANCO Resulted - Urinary frequency) Prescription Orders Rx Cart - Sep 28 2013 11:31 ciprofloxacin 500 mg tablet, 1 tablet(s) by mouth every 12 hours, 10 day(s), No refills Cart Status: Submitted Route: Electronic Rx Cart Order Notes: STEFANO prescriptions to [facility] ORPDP ID [id number] phone: [phone]: [phone] Message for Pharmacy: - Patient Education Materials Education Materials given to patient: Urinary Tract Infection in Men: Patient Education Information: Verbal information given to patient. Patient receptive and voiced understanding. No review needed. Suspicious for prostatitis will start on Cipro followup in one to 2 weeks for recheck Contributors to this Visit Note Documenting Clinician: Shane PAEZ - Staff Type: Office staff Time: Sep 28 2013 11:00 Action: Mel PAEZ - Staff Type: Office staff Time: Sep 28 2013 11:12 Action: Edjanene OSUNA - Staff Type: Time: Sep 29 2013 13:06 Action: Laurie OSUNA - Staff Type: Time: Sep 29 2013 13:06 Action: Sign documented in this encounter Plan of Treatment Not on file documented as of this encounter Visit Diagnoses Diagnosis Prostatitis, unspecified documented in this encounter Care Teams Manufacturing Millwright Relationship Specialty Start Date End Date Eugene Osuna MD PCP - General Family Medicine 10/31/13 documented as of this encounter
--- OUTSIDE RECORDS SUMMARY | 2025-02-12 17:37 | XMS_ITS | Encounter Summary ---
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 Gender Identity Male 12/26/2020 12:45 PM CDT Sexual Orientation Not on file documented as of this encounter Last Filed Vital Signs Vital Sign Reading Time Taken Comments Blood Pressure 112/80 03/16/2013 4:20 PM CDT Pulse 76 03/16/2013 4:20 PM CDT Temperature 37.4 C (99.3 F) 03/16/2013 4:20 PM CDT Respiratory Rate 16 03/16/2013 4:20 PM CDT Oxygen Saturation - - Inhaled Oxygen Concentration - - Weight 64.2 kg (141 lb 8 oz) 03/16/2013 4:20 PM CDT Height - - Body Mass Index 22.16 01/09/2013 10:58 AM CDT documented in this encounter Progress Notes * Favio Tubbs PA-C - 03/16/2013 4:20 PM CDT Nursing Chief Complaint/Reason For Encounter HERE WITH C/O URINARY FREQUENCY-UP 3-4-5-TIMES A NIGHT Subjective HPI Patient is here complaining of urinary frequency especially at night when he is up 3-4 times to urinate--he denies any dysuria abdominal pain--he is up-to-date on his PSA and denies any past prostateproblems--he apparently did have his prostate checked by in the not too distant past and it was totally normal in size--of note the patient is taking hydrochlorothiazide 12.5 twice a dayfor a past kidney stone--patient does not always take it twice a day remarked that it's what directs on the bottle Allergies Reviewed: Mar 16 2013 NKA Past Med/Surg History Procedures Colonoscopy (2) - Dr Herrera; Last Performed: 01/23/2011 Health Maintenance Immunizations Flu vacc, split >=3yrs, IM, preserv free; Dates: 03/22/2011; 03/22/2011; 04/14/2012 Zoster (Zostavax - shingles) vacc, live, SC; Dates: 12/03/2011 Med List last modified Mar 16 2013 Reviewed: Mar 16 2013 hydrochlorothiazide 12.5 mg capsule, 1 cap(s) by mouth 2 times/day, 180 capsule taking Preferred Pharmacy [facility] [[address]] Fax: [phone] Family History last modified Mar 02 2005 Reviewed: Mar 16 2013 Positive Family History for: Alcoholism Colorectal cancer: Parent Hypertension Social History last modified Jan 09 2013 Reviewed: Mar 16 2013 Tobacco Former smoker; Never used smokeless; Tobacco reviewed with patient 03/16/2013 Alcohol Use Current alcohol user Caffeine Use Uses caffeine; Type: coffee Diet/Nutrition Average diet Drug Misuse No reported history Exercise Exercises 5 or more days/wk Home Safety Risk No significant home safety risk factors Personal: Ethnicity: Not ; Race: WHITE; 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; Primary language: GEORGIAN; Marital status: ; 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; Employer: [employer] Vital Signs Temp: 99.3??F (Skin) [37.4??C] HR: 76 bpm RR: 16 Blood Pressure: 112/80 mmHg (L arm sitting Adult-std cuff) Weight:141 lb 8 oz lbs [64.183 kg ] BMI: 22.2 BSA: 1.746 (Height value used from 01/09/2013) Date/Time: Mar 16 2013 16:20 Lab Results 03/16/2013 Urine w/o micro - FRANCO Appearance sl.cldy yellow Glucose neg mg/dl Bilirubin neg n=negative Ketones neg mg/dl Specific gravity 1.015 Blood neg n=negative pH 7.0 Protein neg mg/dl Urobilinogen 0.2 mg/dl Nitrite neg n=negative Leukocytes neg n=negative UA is normal Assessment Assessments Nocturia (ICD-9 billing code: 788.43) Billing Detail Review and/or order of lab tests Plan Lab Orders Urine Dipstick (Urinalysis w/o micro) - FRANCO (FRANCO Resulted - Nocturia) Culture Urine (Ordered - Nocturia): Patient education: Struck the patient to take a high of trocar thiazide once per day in the morning, 25 mg and restrict his fluid intake just before bed Followup 10 days if the symptoms persist, Patient Education Information: Verbal information given to patient. Patient receptive and voiced understanding. No review needed. Contributors to this Visit Note Documenting Clinician: George PAEZ - Staff Type: Office staff Time: Mar 16 2013 16:20 Action: Mel PAEZ - Staff Type: Office staff Time: Mar 16 2013 16:34 Action: Laurie TUBBS - Staff Type: JONO Time: Mar 17 2013 08:30 Action: Laurie Jerome Staff Type: JONO Time: Mar 17 2013 08:30 Action: Sign documented in this encounter Plan of Treatment Not on file documented as of this encounter Visit Diagnoses Diagnosis Polyuria documented in this encounter Care Teams Meter And Service Line Inspector Relationship Specialty Start Date End Date Eugene Aguirre MD PCP - General Family Medicine 10/31/13 documented as of this encounter
[2025-02-12 17:38] VITALS: BP 191/92; PULSE 58; RESP 18; TEMP 36.6; O2SAT 98
--- OUTSIDE RECORDS SUMMARY | 2025-02-12 17:38 | XMS_ITS | Encounter Summary ---
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 MEDICAL DOCTOR Gender Identity Male 12/26/2020 12:45 PM CDT Sexual Orientation Not on file documented as of this encounter Last Filed Vital Signs Vital Sign Reading Time Taken Comments Blood Pressure 124/76 07/21/2005 1:25 PM FAMILY PRACTICE MEDICAL DOCTOR Pulse 64 07/21/2005 1:25 PM FAMILY PRACTICE MEDICAL DOCTOR Temperature 36.6 C (97.8 F) 07/21/2005 1:25 PM FAMILY PRACTICE MEDICAL DOCTOR Respiratory Rate 16 07/21/2005 1:25 PM FAMILY PRACTICE MEDICAL DOCTOR Oxygen Saturation - - Inhaled Oxygen Concentration - - Weight 66.4 kg (146 lb 6 oz) 07/21/2005 1:25 PM FAMILY PRACTICE MEDICAL DOCTOR Height - - Body Mass Index - - documented in this encounter Plan of Treatment Not on file documented as of this encounter Visit Diagnoses Not on filedocumented in this encounter Care Teams Photocopying Equipment Repairer Relationship Specialty Start Date End Date Eugene Aguirre MD PCP - General Family Medicine 10/31/13 documented as of this encounter
--- OUTSIDE RECORDS SUMMARY | 2025-02-12 17:38 | XMS_ITS | Encounter Summary ---
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 Gender Identity Male 12/26/2020 12:45 PM CDT Sexual Orientation Not on file documented as of this encounter Last Filed Vital Signs Vital Sign Reading Time Taken Comments Blood Pressure 138/80 03/02/2005 1:25 PM CDT Pulse 72 03/02/2005 1:25 PM CDT Temperature - - Respiratory Rate - - Oxygen Saturation - - Inhaled Oxygen Concentration - - Weight 66.5 kg (146 lb 9.6 oz) 03/02/2005 1:25 P M CDT Height - - Body Mass Index - - documented in this encounter Plan of Treatment Not on file documented as of this encounter Visit Diagnoses Not on filedocumented in this encounter Care Teams Associate Professor Relationship Specialty Start Date End Date Eugene Aguirre MD PCP - General Family Medicine 10/31/13 documented as of this encounter
--- OUTSIDE RECORDS SUMMARY | 2025-02-12 17:38 | XMS_ITS | Clinical Summary ---
Author Organization [employer] Address [address] [place] [address] Care Team Providers Care Golf Club Weigher Name Role Phone Eugene Aguirre MD Primary Care Provider +1- [phone] Source Comments This disclosure is being made pursuant to the eyefactive program and maynot contain all information available regarding this patient.[employer] Allergies No known active allergies Medications Saw Itz, Serenoa repens, 1000 MG CAPS Take 1 capsule by mouth daily. Active Misc Natural Products (GLUCOSAMINE CHONDROITIN ADV PO) Take 1 tablet by mouth daily. Active Multiple Vitamins-Mineral s (MULTIVITAMIN PO) Take by mouth daily. Active ibuprofen 400 MG tablet Take 400 mg by mouth every 6 (six) hours as needed. 0 9 Active tamsulosin HCl (FLOMAX) 0.4 MG capsule Take 2 (two) capsules by mouth daily. 180 capsule 3 2 Active Additional Information Patient taking differently: 0.4 mgOralEVERY MORNING, Reported on 04/08/2023 hydrochlorothiaz alona (Microzide) 12.5 MG capsule Take 1 (one) capsule by mouth daily. 90 capsule 3 3 Active dutasteride (Avodart) 0.5 MG capsule Take 1 (one) capsule by mouth daily. 90 capsule 3 3 Active Additional Information Patient taking differently:0.5 mg OralEVERY MORNING, Reported on 04/08/2023 polyvinyl alcohol (ARTIFICIAL TEARS) 1.4 % ophthalmic solution 1 drop as needed. Active mirabegron ER (Myrbetriq) 25 MG TB24 ER tablet Take 1 (one) tablet by mouth daily. 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 04/07/2021 Closed fracture of proximal end of right humerus 09/19/2020 Trigeminal neuralgia 09/17/2018 Impacted cerumen of both ears 02/21/2015 Kidney stones 01/30/2015 Immunizations Immunization Administration Dates Next Due Anthrax (BioThrax) MARIA DE JESUS 04/11/2003,2002,03/28/2002,08/29,07/20/1999,07/06/1999 COVID-19 (PFIZER COMIRNATY) mRNA ages 12+ 03/14/2023 COVID-19 (PFIZER-BIVALENT) M RNA ages 12+ 11/08/2022,03/12/2022 COVID-19 (PFIZER-yost cap) m RNA ages 12+ 09/19/2021 COVID-19 (PFIZER-purple cap) MRNA ages 12+ 03/13/2021,08/14/2020,07/16/2020 Hepatitis A adult 11/15/1999,05/17/1999 Hepatitis B 09/13/1999,02/23/1999,01/19/1999 Influenza (FLUZONE HIGH DOSE ) IIV4 PREFILLED SYRINGE 03/23/2023 Influenza (FLUZONE HIGH-DOSE) IIV3 04/15/2017 Influenza Split 03/19/2014, 3,04/14/2012,03/22,05/02/2004 Influenza, Inactivated, Quad rivalent, ALL AGES 6 months and older, multi-dose vial 02/19/2022 Influenza, inactivated, quad rivalent, 3 years and older, single dose syringe/vial 02/20/2020,05/01/2016,04/15/2015 Influenza, unspecified formulation 02/28,04/04/2019,04/07/2018,04/15,05/01/2016,04/15/2015,03/19/2014 ,04/05/2013 LIVE Vaccinia ([id number]) Smallpox 09/08/2001 LIVE Zoster (Zostavax) ZVL 12/03/2011 Meningococcal Polysaccharide (Menomune) MPSV4 07/19/1999 PPD Test 07/15/2002,,11/13/2000,05/17 Pneumococcal Conjugate-13 (P revnar 13) PCV13 05/01/2016 Pneumococcal Polysaccharide- 23 (Pneumovax 23) PPSV23 05/13/2017 Polio (Orimune) OPV 04/14/1970 Tdap 06/10/2017 Tetanus and Diphtheria (Generic) Td 04/21/2004,1 06/14/1993 Typhoid Inactivated (Typhim Vi) 04/22/2005 Typhoid, unspecified formulation 005,07/15/2002,11/13/2000,01/19,07/15/1996 Yellow Fever (YF-Vax) YF 08/12/1994 Zoster (Shingrix) RZV 04/29/2020,02/20/2020 influenza Whole 04/20/2005 Family History Medical History Relation Name Comments COPD Father Other Mother Other Other 1 Alcoholism - Al l Family: Noted on 2005-03-02 08:51:03 Other Other 2 Colorectal canc er - All Family: Noted on 2005-03-02 08:51:03 Other Other 3 Hypertension - All Family: Noted on 2005-03-02 08:51:03 Other Other 4 Smoking tobacco - All Family: Noted on 2013-09-28 11:09:14 Relation Name Status Comments Father Mother Other 1 Other 2 Other 3 Other 4 Social History Tobacco Use Types Packs/Day Years Used Date Smoking Tobacco: Former Cigarettes 0.5 12 0 06/14/1967 - 06/14/1979 Smokeless Tobacco: Former Quit: 2012 Comments:Chewing tobacco Alcohol Use Standard Drinks/Week Comments Yes 3 (1 standard drink = 0.6 oz pur e alcohol) rarely PHQ-2 Answer Date Recorded PHQ-2 Total Score 0 04/20/2023 Sex and Gender Information Value Date Recorded Sex Assigned at Not on file Legal Sex Male 4:46 PM GROCERY 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 Gender Identity Male 12/26/2020 12:45 PM CDT Sexual Orientation Not on file Last Filed Vital Signs Vital Sign Reading Time Taken Comments Blood Pressure 169/80 04/15/2023 2:55 PM CDT Pulse 56 04/15/2023 2:55 PM CDT Temperature 36.8 C (98.3 F) 04/15/2023 10:55 AM CDT Respiratory Rate 18 04/15/2023 2:55 PM CDT Oxygen Saturation 100% 04/15/2023 2:55 PM CDT Inhaled Oxygen Concentration - - Weight 60.7 kg (133 lb 13.1 oz) 023 10:55 AM CDT Height 167.6 cm (5' 6) 04/15/2023 10:5 5 AM CDT Body Mass Index 21.6 04/15/2023 10:55 AM CDT Plan of Treatment Health Maintenance Due Date Last Done Comments CT Colonography 1950 Fecal DNA Test 1950 Lab-Hepatitis C Screening 1950 Sigmoidoscopy 1949 FOBT/FIT 1969 IPV Vaccine (2 of 3 - Adult catch-up series) 05/12/1970 04/14/1970 Lab-Cholesterol Screening 01/20/2017 01/21/2012 Subsequent Medicare Annual Wellness Visit (AWV) 08/21/2023 08/20/2022, 08/19/2021, 04/18/2020, Additional history exists COVID-19 Vaccine ( season) 2024 03/14/2023, 11/08/2022, 03/12/2022, Additional history exists RSV Adult (1 - 1-dose 75+ series) 2024 Influenza Vaccine (#1) 2025 , 02/19/2022, 02/28/2021, Additional history exists Tetanus/Pertussis Vaccine Teen/Adult (4 - Td or Tdap) 06/10/2027 06/10/2017, 04/21/2004, 04/14/1994 Colonoscopy 11/19/2031 11/18/2021, 01/12, 11/28/2003 Colorectal Cancer Screening 11/19/2031 Meningococcal Conjugate Vaccine Aged Out 07/19/1999 No longer eligible based on patient's age to complete this topic Hepatitis A Vaccine Aged Out 11/15/1999, 9 No longer eligible based on patient's age to complete this topic Pneumococcal Vaccines 50+ Completed 05/13/2017, 11/ Zoster (Shingles) Vaccine 50+ Completed 04/29/2020, 02/20/2020, 12/03/2011 HIB Vaccine Aged Out No longer eligi ble based on patient's age to complete this topic HPV Vaccine (9-26yo & Shared Decision 27-45yo) Aged Out No longer eligible based on patient's age to complete this topic RSV < 20 Months Aged Out No longer el igible based on patient's age to complete this topic Goals Goal Patient Goal Type Associated Problems Recent Progress Patient-Stated? Author Increase water intake Diet On track( 021 2:41 PM CDT) No Eugene Aguirre MD Note: Assessment of Goals: Patient understands and recognizes importance to complete goal. Barriers or concerns to completing goal: none To assist in achieving goal, patient will: drink plenty of water Medical Devices Implanted Type Area Legislative Aide Device Identifier Shelf Expiration Date Model / Serial / Lot Scr Axsos3 Vikki Ti 4x30mm - [id number] Implanted:Qty: 1 on 09/19/2020 by Brando Diane MD at [facility] Right: Humerus [employer] [id number] / / Scr Axsos3 Vikki Ti 4x32mm - [id number] Implanted:Qty: 1 on 09/19/2020 by Brando Diane MD at [facility] Right: Humerus [employer] [id number] / / Scr Axsos3 Vikki Ti 4x42mm - [id number] Implanted:Qty: 2 on 09/19/2020 by Brando Diane MD at [facility] Right: Humerus [employer] [id number] / / Scr Axsos3 Vikki Ti 4x44mm - [id number] Implanted:Qty: 2 on 09/19/2020 by Brando Diane MD at [facility] Right: Humerus [employer] [id number] / / Scr Axsos3 Vikki Ti 4x46mm - [id number] Implanted:Qty: 2 on 09/19/2020 by Brando Diane MD at [facility] Right: Humerus [employer] [id number] / / Scr Axsos Jono Ti 3.5x32mm - [id number] Implanted:Qty: 1 on 09/19/2020 by Brando Diane MD at [facility] Right: Humerus [employer] [id number] / / Kit Cartrg Hndl Urolift 2 - [id number] Implanted:Qty: 2 on 04/15/2023 by Augustin Enriquez MD at [facility] N/A: [employer] 12/08/2024 UL2-K / / [id number] Impl Cartrg Urolift 2 - [id number] Implanted:Qty: 3 on 04/15/2023 by Augustin Enriquez MD at [facility] N/A: [employer] 08/07/2023 UL2-C / / [id number] Explanted Type Area Legislative Aide Device Identifier Shelf Expiration Date Model / Serial / Lot Scr Axsos Jono Ti 3.5x30mm - [id number] Explanted:Qty: 1 on 09/19/2020 by Brando Diane MD at [facility] Right: Humerus [employer] [id number] / / 3.5 Mm Cortical Screw Self Tapping Explanted:Qty: 1 on 09/19/2020 by Brando Diane MD at [facility] Right: Humerus [employer] [id number] / / Procedures Procedure Name Priority Date/Time Associated Diagnosis Comments COLONOSCOPY Routine 11/18/2021 LIPID PANEL Routine 01/21/2012 from Last 3 Months or Most Recently Relevant to Health Maintenance Results * Colonoscopy (11/18/2021) us Not In System Provider HEALTH MAINTENANCE Final Result * (ABNORMAL) Lipid panel (01/21/2012) Cholesterol 201(H) >50 <200 mg/dL [facility] Pt Fasting? Yes > < [facility] HDL Cholesterol 65 >40 <92 mg/dL [facility] LDL 123 >1 <129 mg/dL [facility] Triglycerides 67 >20 <150 mg/dL [facility] VLDL Cholesterol 13 >0 <40 mg/dL [facility] 01/21/2012 Eugene Aguirre MD LAB BLOOD ORDERABLES Final Result [facility] from Last 3 Months or Most Recently Relevant to Health Maintenance Insurance MEDICARE [facility] Care Teams Golf Club Weigher Relationship Specialty Start Date End Date Eugene Aguirre MD PCP - General Family Medicine 10/31/13
--- OUTSIDE RECORDS SUMMARY | 2025-02-12 17:39 | XMS_ITS | Encounter Summary ---
Author Organization [employer] Address [address] [place] [address] Care Team Providers Care Concrete Pipe Plant Supervisor Name Role Phone Eugene Aguirre MD Primary Care Provider +1- [phone] Encounter Details Date Type Department Care Team (Late st Contact Info) Description 04/10/[address] 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 Gender Identity Male 12/26/2020 12:45 PM CDT Sexual Orientation Not on file documented as of this encounter Last Filed Vital Signs Vital Sign Reading Time Taken Comments Blood Pressure 124/80 04/10/2010 4:09 PM CDT Pulse - - Temperature - - Respiratory Rate - - Oxygen Saturation - - Inhaled Oxygen Concentration - - Weight - - Height - - Body Mass Index - - documented in this encounter Plan of Treatment Not on file documented as of this encounter Visit Diagnoses Not on filedocumented in this encounter Care Teams Concrete Pipe Plant Supervisor Relationship Specialty Start Date End Date Eugene Aguirre MD PCP - General Family Medicine 10/31/13 documented as of this encounter
--- OUTSIDE RECORDS SUMMARY | 2025-02-12 17:39 | XMS_ITS | Encounter Summary ---
Author Organization [employer] Address [address] [place] [address] Care Team Providers Care Jboss Architect Name Role Phone Eugene Aguirre MD Primary Care Provider +1- [phone] Encounter Details Date Type Department Care Team (Late st Contact Info) Description 04/08/2006 Historical Office Visit PRM Conversion Provider, Not In System Social History Tobacco Use Types Packs/Day Years Used Date Smoking Tobacco: Never Assessed Sex and Gender Information Value Date Recorded Sex Assigned at Not on file Legal Sex Male 4:46 PM NURSING ASSOC Gender Identity Male 12/26/2020 12:45 PM CDT Sexual Orientation Not on file documented as of this encounter Last Filed Vital Signs Vital Sign Reading Time Taken Comments Blood Pressure 120/70 04/08/2006 4:14 PM CDT Pulse - - Temperature 36.7 C (98 F) 04/08/2006 4:14 PM CDT Respiratory Rate - - Oxygen Saturation - - Inhaled Oxygen Concentration - - Weight 65.5 kg (144 lb 6 oz) 04/08/2006 4:14 PM CDT Height 167.6 cm (5' 6) 04/08/2006 4:14 PM CDT Body Mass Index 23.3 04/08/2006 4:14 PM CDT documented in this encounter Plan of Treatment Not on file documented as of this encounter Visit Diagnoses Not on filedocumented in this encounter Care Teams Jboss Architect Relationship Specialty Start Date End Date Eugene Aguirre MD PCP - General Family Medicine 10/31/13 documented as of this encounter
--- OUTSIDE RECORDS SUMMARY | 2025-02-12 17:39 | XMS_ITS | Encounter Summary ---
Author Organization [facility] Address [address] [place] [address] Care Team Providers Care Refrigerating Technician Name Role Phone Eugene Aguirre MD Primary Care Provider +1- [phone] Encounter Details Date Type Department Care Team (Latest Contact Info) Description 01/15/2010 Historical Office Visit [facility] Family Medicine [place] [address] [place] [address] Eugene Aguirre MD [address] [place] [address] Calculus of kidney Social History Tobacco Use Types Packs/Day Years Used Date Smoking Tobacco: Never Assessed Sex and Gender Information Value Date Recorded Sex Assigned at Not on file Legal Sex Male 4: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 Gender Identity Male 12/26/2020 12:45 PM CDT Sexual Orientation Not on file documented as of this encounter Last Filed Vital Signs Vital Sign Reading Time Taken Comments Blood Pressure 118/72 01/15/2010 3:39 PM CDT Pulse 64 01/15/2010 3:39 PM CDT Temperature - - Respiratory Rate 16 01/15/2010 3:39 PM CDT Oxygen Saturation - - Inhaled Oxygen Concentration - - Weight 64.9 kg (143 lb 2 oz) 01/15/2010 3:39 PM CDT Height 167.6 cm (5' 6) 01/15/2010 3:39 PM CDT Body Mass Index 23.1 01/15/2010 3:39 PM CDT documented in this encounter Plan of Treatment Not on file documented as of this encounter Visit Diagnoses Diagnosis Calculus of kidney documented in this encounter Care Teams Refrigerating Technician Relationship Specialty Start Date End Date Eugene Aguirre MD PCP - General Family Medicine 10/31/13 documented as of this encounter
--- OUTSIDE RECORDS SUMMARY | 2025-02-12 17:39 | XMS_ITS | Encounter Summary ---
Author Organization [facility] Address [address] [place] [address] Care Team Providers Care Enlisted Aircrew/Aerial Observer/Gunner Name Role Phone Eugene Osuna MD Primary Care Provider +1- [phone] Encounter Details Date Type Department Care Team (Latest Contact Info) Description 12/22/2010 Historical [facility] [place] [address] [place] [address] Eugene Osuna MD [address] [place] [address] Unspecified urinary calculus; Calculus of kidney; Routine general medical examination at a health care facility; Special screening for malignant neoplasm of prostate Social History Tobacco Use Types Packs/Day Years Used Date Smoking Tobacco: Never Assessed Sex and Gender Information Value Date Recorded Sex Assigned at Not on file 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 Gender Identity Male 12/26/2020 12:45 PM CDT Sexual Orientation Not on file documented as of this encounter Last Filed Vital Signs Vital Sign Reading Time Taken Comments Blood Pressure 118/64 12/22/2010 4:13 PM CDT Pulse 68 12/22/2010 4:13 PM CDT Temperature - - Respiratory Rate 16 12/22/2010 4:13 PM CDT Oxygen Saturation - - Inhaled Oxygen Concentration - - Weight 62.6 kg (138 lb) 12/22/2010 4:13 PM CDT Height 170.2 cm (5' 7) 12/22/2010 4:13 PM CDT Body Mass Index 21.61 12/22/2010 4:13 PM CDT documented in this encounter Progress Notes * Eugene Osuna MD - 12/22/2010 4:13 PM CDT Nursing Chief Complaint/Reason For Encounter YEARLY CHECK Tobacco history reviewed and appropriate changes made to the Social History., Medication list givenand reviewed with patient/family and voices understanding. 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, he denies any pains or c/o, he is very healthy and runs daily, Allergies NKA Past Med/Surg History Procedures Colonoscopy(1); Last Performed: 11/28/2003 Med List last modified Dec 22 2010 hydrochlorothiazide 12.5 mg Cap, 1 cap(s) by mouth 2 times/day, 60 capsule taking triamcinolone acetonide 0.1 % Topical Cream, Apply to affected area(s) 2 times per day, 80 gm(s) taking Preferred Pharmacy [place], [place] [[address]] Family History last modified 03/02/2005 Reviewed: 12/22/2010 Positive Family History for: Alcoholism Colorectal cancer: Parent Hypertension Social History last modified 08/15/2010 Reviewed: 12/22/2010 Tobacco Former smoker; Tobacco reviewed with patient 12/22/2010 Alcohol Use Current alcohol user Caffeine Use Uses caffeine; Type: coffee Personal: Ethnicity: ; Race: 1-White; Baptism: No Preference; Primary language: E; Marital status: ; 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: [employer]; 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; 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 Vital Signs HR: 68 RR: 16 Blood Pressure: 118/64 (L arm sitting Adult-std cuff) Height: 67 in [170.18 cm] Weight: 138 lbs [ 62.596 kg ] BMI: 21.6 BSA: 1.727 Date/Time: Dec 22 2010 16:13 Physical Exam Constitutional Alert, No acute distress Cardiovascular Normal S1, Normal S2, No S3 Respiratory Normal respiratory effort, Breath sounds normal no rales or rhonchi, No wheezing heard Gastrointestinal No abdominal tenderness, No abdominal mass Integumentary Skin warm and dry, Skin color normal, Rashes not found Assessment Assessments Screening for colon cancer (ICD-9 billing code: V76.51) Urinary calculus (ICD-9 billing code: 592.9) Billing Detail Review and/or order of lab tests Plan Lab Orders Basic Metabolic Panel (BMP)(Resulted - Urinary calculus) Prostate Specific AG (PSA Total), Screening(Resulted - Urinary calculus) Procedure Orders Gastroenterology Consult Order(Ordered - Screening for colon cancer), Faxed to [facility] [phone] by Peter MARTIN on Dec 22 2010 17:15 Patient Education Information: Verbal information given to patient. Patient receptive and voiced understanding. No review needed. calculi on KUB again noted right side same position no movment, and very low likelyhood of movementBMP WNL, will write letter in reference to these findings, see documents Contributors to this Visit Note Documenting Clinician: Shane IBARRA - Role: Production Inspector; Nurse; Procedure Center Lead Consultant; Referral Processor; Rx Processor Time: Dec 22 2010 16:13 Action: Mel IBARRA - Role: Production Inspector; Nurse; Procedure Center Lead Consultant; Referral Processor; Rx Processor Time: Dec 22 2010 16:29 Action: Laurie MARTIN - Role: Tool Technician; Medical Records; Procedure Center Lead Consultant; Television Service Engineer; ReferralProcessor Time: Dec 22 2010 17:15 Action: Laurie OSUNA - Role: Clinician; GEORGIE physician; Center Lead Consultant Time: Dec 24 2010 08:51 Action: Laurie OSUNA - Role: Clinician; GEORGIE physician; Center Lead Consultant Time: Dec 24 2010 08:51 Action: Sign documented in this encounter Plan of Treatment Not on file documented as of this encounter Visit Diagnoses Diagnosis Urinary calculus, unspecified Calculus of kidney Routine general medical examination at a health care facility Special screening for malignant neoplasm of prostate documented in this encounter Care Teams Enlisted Aircrew/Aerial Observer/Gunner Relationship Specialty Start Date End Date Eugene Osuna MD PCP - General Family Medicine 10/31/13 documented as of this encounter
--- OUTSIDE RECORDS SUMMARY | 2025-02-12 17:39 | XMS_ITS | Encounter Summary ---
Author Organization [facility] Address [address] [place] [address] Care Team Providers Care Exhaust Equipment Operator Name Role Phone Eugene Osuna MD Primary Care Provider +1- [phone] Encounter Details Date Type Department Care Team (Latest Contact Info) Description 01/21/2012 Historical Office Visit [facility] Family Medicine [place] [address] [place] [address] Eugene Osuna MD [address] [place] [address] Calculus of kidney; Special screening for malignant neoplasm of prostate Social History Tobacco Use Types Packs/Day Years Used Date Smoking Tobacco: Never Assessed Sex and Gender Information Value Date Recorded Sex Assigned at Not on file 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 Gender Identity Male 12/26/2020 12:45 PM CDT Sexual Orientation Not on file documented as of this encounter Last Filed Vital Signs Vital Sign Reading Time Taken Comments Blood Pressure 118/72 01/21/2012 9:41 AM CDT Pulse 68 01/21/2012 9:41 AM CDT Temperature - - Respiratory Rate 16 01/21/2012 9:41 AM CDT Oxygen Saturation - - Inhaled Oxygen Concentration - - Weight 62.6 kg (138 lb) 01/21/2012 9:41 AM CDT Height 170.2 cm (5' 7) 01/21/2012 9:41 AM CDT Body Mass Index 21.61 01/21/2012 9:41 AM CDT documented in this encounter Progress Notes * Eugene Osuna MD - 01/21/2012 9:41 AM CDT Nursing Chief Complaint/Reason For Encounter PHYSICAL AND LABS: Influenza vaccine not ordered or administered for the following reason: not indicated, Medication list given and reviewed with patient/family and voices understanding. 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, and needs KUB and metabolic work up and letter, Allergies Reviewed: Jan 21 2012 NKA Past Med/Surg History Procedures Colonoscopy (2) - Dr Herrera; Last Performed: 01/23/2011 Health Maintenance Immunizations Flu vacc, split >=3yrs, IM, preserv free; Dates: 03/22/2011; 03/22/2011 Zoster (Zostavax - shingles) vacc, live, [place]; Dates: 12/03/2011 Med List last modified Jan 21 2012 Reviewed: Jan 21 2012 hydrochlorothiazide 12.5 mg Cap, 1 cap(s) by mouth 2 times/day, 60 capsule taking discontinued Preferred Pharmacy [place], [place] [[address]] Family History last modified Mar 02 2005 Reviewed: Jan 21 2012 Positive Family History for: Alcoholism Colorectal cancer: Parent Hypertension Social History last modified Aug 15 2010 Reviewed: Jan 21 2012 Tobacco Former smoker; Tobacco reviewed with patient 01/21/2012 Alcohol Use Current alcohol user Caffeine Use Uses caffeine; Type: coffee Personal: Ethnicity: Not ; Race: WHITE; Alevism: V BELT BUILDER; Primary language: PAKISTANI; Marital status: ; 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; 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: [employer] Objective Vital Signs HR: 68 bpm RR: 16 Blood Pressure: 118/72 mmHg (L arm sitting Adult-std cuff) Height: 67 in [170.18 cm] Weight:138 lbs [62.596 kg ] BMI: 21.6 BSA: 1.727 Date/Time: Jan 21 2012 09:41 Physical Exam Constitutional: Alert, No acute distress Cardiovascular: Normal S1, Normal S2, No S3 Respiratory: Normal respiratory effort, Breath sounds normal no rales or rhonchi, No wheezing heard Gastrointestinal: No abdominal tenderness, No abdominal mass Assessment Assessments Advice/health instruction (ICD-9 billing code: V65.40) CALCULUS OF KIDNEY (ICD-9 billing code: 592.0) Billing Detail Review and/or order of lab tests; Review and/or order of test in the medicine section of CPT Plan Lab Orders Comprehensive Metabolic Panel (CMP) (Resulted - CALCULUS OF KIDNEY) Lipid Panel (Resulted - CALCULUS OF KIDNEY) Prostate Specific AG (PSA Total), Screening (Resulted - CALCULUS OF KIDNEY) Procedure Orders zPt Ed - Smoking (Performed - Advice/health instruction), Reason: PATIENT DOES NOT SMOKE: Patient Education Information: Verbal information given to patient. Patient receptive and voiced understanding. No review needed. no pain or sxs, will do KUB and CMP and will f/u with letter, Contributors to this Visit Note Documenting Clinician: Shane IBARRA - Staff Type: Registered Nurse Time: Jan 21 2012 09:41 Action: Mel IBARRA - Staff Type: Registered Nurse Time: Jan 21 2012 09:43 Action: Laurie PAEZ - Staff Type: NONE Time: Jan 21 2012 10:09 Action: Laurie OSUNA - Staff Type: Time: Jan 26 2012 08:24 Action: Laurie OSUNA - Staff Type: Time: Jan 26 2012 08:24 Action: Sign documented in this encounter Plan of Treatment Not on file documented as of this encounter Visit Diagnoses Diagnosis Calculus of kidney Special screening for malignant neoplasm of prostate documented in this encounter Care Teams Exhaust Equipment Operator Relationship Specialty Start Date End Date Eugene Osuna MD PCP - General Family Medicine 10/31/13 documented as of this encounter
--- OUTSIDE RECORDS SUMMARY | 2025-02-12 17:39 | XMS_ITS | Encounter Summary ---
Author Organization [facility] Address [address] [place] [address] Phone Care Team Providers Care Backup Administrative Coordinator Name Role Phone Eugene Aguirre MD Primary Care Provider +1- [phone] Encounter Details Date Type Department Care Team (Late Contact Info) Description 04/15/2023 Anesthesia Event [facility] [address] [place] [address] Nicole Acosta CRNA [address] [place] [address] Social History Tobacco Use Types Packs/Day Years Used Date Smoking Tobacco: Never Assessed Sex and Gender Information Value Date Recorded Sex Assigned at Not on file Legal Sex Male 9:58 AM CDT Gender Identity Male 04/06/2023 9:58 AM CDT Sexual Orientation Not on file documented as of this encounter Plan of Treatment Upcoming Encounters Date Type Department Care Team (Late Contact Info) Description 03/27/2025 8:15 AM CDT [facility] [address] [address] Augustin Enriquez MD [facility] [address] [facility] [address] [place] [address] documented as of this encounter Visit Diagnoses Not on filedocumented in this encounter Care Teams Backup Administrative Coordinator Relationship Specialty Start Date End Date Eugene Aguirre MD PCP - General 10/31/13 documented as of this encounter
--- OUTSIDE RECORDS SUMMARY | 2025-02-12 17:39 | XMS_ITS | Encounter Summary ---
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 Gender Identity Male 12/26/2020 12:45 PM CDT Sexual Orientation Not on file documented as of this encounter Last Filed Vital Signs Vital Sign Reading Time Taken Comments Blood Pressure 112/70 12/26/2007 9:59 AM CDT Pulse 60 12/26/2007 9:59 AM CDT Temperature - - Respiratory Rate - - Oxygen Saturation - - Inhaled Oxygen Concentration - - Weight 62.8 kg (138 lb 6 oz) 12/26/2007 9:59 AM CDT Height - - Body Mass Index 22.33 04/08/2006 4:14 PM CDT documented in this encounter Plan of Treatment Not on file documented as of this encounter Visit Diagnoses Not on filedocumented in this encounter Care Teams Nurse Recruiter Relationship Specialty Start Date End Date Eugene Aguirre MD PCP - General Family Medicine 10/31/13 documented as of this encounter
--- OUTSIDE RECORDS SUMMARY | 2025-02-12 17:39 | XMS_ITS | Encounter Summary ---
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 Gender Identity Male 12/26/2020 12:45 PM CDT Sexual Orientation Not on file documented as of this encounter Last Filed Vital Signs Vital Sign Reading Time Taken Comments Blood Pressure 100/66 12/21/2006 9:01 AM CDT Pulse - - Temperature - - Respiratory Rate - - Oxygen Saturation - - Inhaled Oxygen Concentration - - Weight - - Height - - Body Mass Index - - documented in this encounter Plan of Treatment Not on file documented as of this encounter Visit Diagnoses Not on filedocumented in this encounter Care Teams Surgery Manager Relationship Specialty Start Date End Date Eugene Aguirre MD PCP - General Family Medicine 10/31/13 documented as of this encounter
--- OUTSIDE RECORDS SUMMARY | 2025-02-12 17:39 | XMS_ITS | Encounter Summary ---
Author Organization [facility] Address [address] [place] [address] Care Team Providers Care Integration Software Engineer Name Role Phone Eugene Osuna MD Primary Care Provider +1- [phone] Encounter Details Date Type Department Care Team (Latest Contact Info) Description 08/15/2010 Historical Office Visit [facility] [address] [place] [address] Eugene Osuna MD [address] [place] [address] Contact dermatitis and other eczema, due to unspecified cause Social History Tobacco Use Types Packs/Day Years Used Date Smoking Tobacco: Never Assessed Sex and Gender Information Value Date Recorded Sex Assigned at Not on file Legal Sex Male 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 Gender Identity Male 12/26/2020 12:45 PM CDT Sexual Orientation Not on file documented as of this encounter Last Filed Vital Signs Vital Sign Reading Time Taken Comments Blood Pressure 130/84 08/15/2010 3:32 PM DISTANCE EDUCATION TEACHER Pulse 72 08/15/2010 3:32 PM DISTANCE EDUCATION TEACHER Temperature 36.8 C (98.2 F) 08/15/2010 3:32 PM DISTANCE EDUCATION TEACHER Respiratory Rate 16 08/15/2010 3:32 PM DISTANCE EDUCATION TEACHER Oxygen Saturation - - Inhaled Oxygen Concentration - - Weight 59 kg (130 lb) 08/15/2010 3:32 PM DISTANCE EDUCATION TEACHER Height - - Body Mass Index 20.98 01/15/2010 3:39 PM CDT documented in this encounter Progress Notes * Eugene Osuna MD - 08/15/2010 3:32 PM CST Nursing Chief Complaint/Reason For Encounter Rash Intake Note NOTED A RED RASH BEHIND HIS KNEES AND FOREARM OF THE RIGHT ARM-VERY ITCHY Tobacco history reviewed and appropriate changes made to the Social History., Medication list givenand reviewed with patient/family and voices understanding. Subjective HPI pt had an over the counter cream he used for dry skin it was a petroleum based vasoline type product and was old, he used it on his skin and subsequently has broken out in severe red raised rash on the right forearmand the back of both legs which is where he used the cream, very tichy benedryl helped some, unable to sleep due to sxs Allergies NKA Past Med/Surg History Procedures Colonoscopy(1); Last Performed: 11/28/2003 Med List last modified Aug 15 2010 Hydrochlorothiazide 12.5 mg Cap, 1 cap(s) by mouth 2 times/day, 60 capsule taking triamcinolone acetonide 0.1 % Topical Cream, Apply to affected area(s) 2 times per day, 80 gm(s) prescribed Preferred Pharmacy [facility] [place], [place] [[address]] Family History last modified 03/02/2005 Reviewed: 08/15/2010 Positive Family History for: Alcoholism Colorectal cancer: Parent Hypertension Social History last modified 08/15/2010 Reviewed: 08/15/2010 Tobacco Former smoker; Tobacco reviewed with patient 08/15/2010 Alcohol Use Current alcohol user Caffeine Use Uses caffeine; Type: coffee Personal: Ethnicity: ; Race: ; 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: [employer]; 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; 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 Vital Signs Temp: 98.2??F (Oral) [36.8??C] HR: 72 RR: 16 Blood Pressure: 130/84 (L arm sitting Adult-std cuff) Weight: 130 lb 0 oz lbs [ 58.967 kg ] BMI: 21.0 (Height value used from 01/15/2010) BSA: 1.666 (Height value used from 01/15/2010) Date/Time: Aug 15 2010 15:32 diffuse erythema forearm and the back of both legs Assessment Assessments Billing Detail Medication Management: New/current prescription meds Plan Prescription Orders Rx Cart - Aug 15 2010 15:53 triamcinolone acetonide 0.1 % Topical Cream, Apply to affected area(s) 2 times per day, 80 gm(s), No refills Cart Status: Submitted Route: Fax Rx Cart Order Notes: Fax prescriptions to [facility] - [place], [place] phone: [phone] fax: [phone] Message for Pharmacy: - Patient Education Information: Verbal information given to patient. Patient receptive and voiced understanding. No review needed. contact dermatitis likely due to the petroleum based OTC product, will give benedryl q 4 hours and topical cream as prescibed and f/u prn or wronseing condition 1 week Contributors to this Visit Note Documenting Clinician: Shane PAEZ - Role: Marketing Database Analyst; Nurse; Procedure Heavy Equipment Service Technician; Referral Processor; Rx Processor Time: Aug 15 2010 15:32 Action: Mel PAEZ - Role: Marketing Database Analyst; Nurse; Procedure Heavy Equipment Service Technician; Referral Processor; Rx Processor Time: Aug 15 2010 15:38 Action: Laurie OSUNA - Role: Clinician; GEORGIE physician; Heavy Equipment Service Technician Time: Aug 15 2010 16:16 Action: Edjanene OSUNA - Role: Clinician; GEORGIE physician; Heavy Equipment Service Technician Time: Aug 15 2010 16:16 Action: Sign documented in this encounter Plan of Treatment Not on file documented as of this encounter Visit Diagnoses Diagnosis Contact dermatitis and other eczema, due to unspecified cause documented in this encounter Care Teams Integration Software Engineer Relationship Specialty Start Date End Date Eugene Osuna MD PCP - General Family Medicine 10/31/13 documented as of this encounter
--- OUTSIDE RECORDS SUMMARY | 2025-02-12 17:39 | XMS_ITS | Encounter Summary ---
Author Organization [facility] Address [address] [place] [address] Phone Care Team Providers Care Project Planner Name Role Phone Eugene Aguirre MD Primary Care Provider +1- [phone] Encounter Details Date Type Department Care Team (Late st Contact Info) Description 07/26/2023 Scanned Document [facility] [address] [place] [id number] Identified, No Provider Social History Tobacco Use Types Packs/Day Years Used Date Smoking Tobacco: Former Cigarettes Q uit: 06/14/1979 Smokeless Tobacco: Former Quit: 06/14/2012 Comments:Quit smoking: Chewi ng tobacco Alcohol Use Standard Drinks/Week Comments Yes 3 (1 standard drink = 0.6 oz pur e alcohol) Sex and Gender Information Value Date Recorded Sex Assigned at Not on file Legal Sex Male 9:58 AM CDT Gender Identity Male 04/06/2023 9:58 AM CDT Sexual Orientation Not on file documented as of this encounter Plan of Treatment Upcoming Encounters Date Type Department Care Team (Late st Contact Info) Description 03/27/2025 8:15 AM CDT [facility] [address] [facility] [address] [place] [address] Augustin Enri[facility] [address] [facility] [address] [place] [address] documented as of this encounter Procedures Procedure Name Priority Date/Time Associated Diagnosis Comments COLONOSCOPY Routine 11/18/2021 12:26 PM CDT documented in this encounter Results * COLONOSCOPY (11/18/2021 12:26 PM CDT) Anatomical Region Laterality Modality Other us No Provider Identified GI PROCEDURES Final Res ult documented in this encounter Visit Diagnoses Not on filedocumented in this encounter Additional Health Concerns Assessment Noted Time A Hypertension Plan of Care has been documented for the patient 07/20/2023 3:38 PM ECOLOGY PROFESSOR documented as of this encounter Care Teams Project Planner Relationship Specialty Start Date End Date Eugene Aguirre MD PCP - General 10/31/13 documented as of this encounter
--- OUTSIDE RECORDS SUMMARY | 2025-02-12 17:39 | XMS_ITS | Clinical Summary ---
Author Organization [facility] (formerly [facility]) Address [address] [place] [address] Phone Care Team Providers Care [employer] Facer Name Role Phone Eugene Aguirre MD Primary Care Provider +1- [phone] Allergies No known active allergies Medications * This document contains information received from the source organization and may not represent a complete record from that organization. artificial tears, Polyvinyl alcohol, 1.4 % eye drops 1 drop as needed. Active multivit,thx,ca lcium,iron,mins (MULTIVITAMIN AND MINERAL OR) Acti ve calcium phosphate dibas/vit D3 (VITAMIN D, WITH CALCIUM, OR) Take by mouth every day Active fluticasone propionate (FLONASE ALLERGY RELIEF OTC) 50 mcg/actuation nasal spray 1-2 sprays by Each Nostril route every day 16 g 4 Active Additional Information Patient not taking.Reason: Patient preference, Reported on 10/06/2024 prednisolone/mo xiflox/bromf/PF (PREDNISOLON-MO XIFLOX-BROMF,PF , OPHTHALMIC) 1 drop 3 (three) times daily 4 Active sod sulf-pot chloride-mag sulf (SUTAB) 1.479-0.188- 0.225 gram Tab Take 12 tablets by mouth Use as directed For colonoscopy scheduled on 11/22/2024. 24 tablet 5 Active Additional Information Patient not taking.Reason: Patient preference, Reported on 10/06/2024 polyethylene glycol 3350 (MIRALAX) 17 gram/dose oral powder Take 17 grams once daily for 3 days prior to 11/22/2024 colonoscopy. 119 g 5 Active hydroCHLOROthia zide 12.5 mg capsuleIndicati ons:Acute non-recurrent maxillary sinusitis Take 1 capsule (12.5 mg total) by mouth every day 90 capsule 3 5 Active carBAMazepine (CARBATROL) 200 mg extended release capsule Take 1 capsule (200 mg total) by mouth 2 (two) times daily 60 capsule 3 5 Active Active Problems Problem Noted Date Diagnosed Date Age-related nuclear cataract, bilateral 01/24/20 Resolved Problems Problem Noted Date Diagnosed Date Resolved Date Nuclear sclerotic cataract of right eye 02/07/2024 02/07/2024 Nuclear sclerotic cataract of left eye 01/24/2024 01/24/2024 Encounters Date Type Department Care Team Description 11/13/2024 Telephone [facility] [address] [place] [address] Provider, Unknown Appointment Cancel/reschedule (Reschedule 11/22 Colon) from Last 3 Months Immunizations Immunization Administration Dates Next Due Anthrax 04/11/2003, 3,03/28/2002,1999,07/20/1999,07/06/1999 Hep B - Recombivax 1ml 09/13/1999,02/23/1999,01/1999 Hepatitis A - Adult 11/15/1999,05/17/1999 Influenza (Flu Quad PF) 05/01/2016,04/15/2015 Influenza (Fluzone Quad) 02/19/2022,02/12,03/19/2014,2012,04/14/2012,03/22/2011,05/02/2004 Influenza HD Quad (Fluzone H igh-dose Quad) 03/23/2023 Influenza HIGH DOSE (FLUZONE HIGH-DOSE) 04/07/2018,04/15/2017 T-dap (BOOSTRIX) 06/10/2017 Family History Medical History Relation Name Comments COPD Father OTHER Mother OTHER Other 1 Alcoholism - Al l Family: Noted on 2005-03-02 08:51:03 OTHER Other 2 Colorectal canc er - All Family: Noted on 2005-03-02 08:51:03 OTHER Other 3 Hypertension - All Family: Noted on 2005-03-02 08:51:03 OTHER Other 4 Smoking tobacco - All Family: Noted on 2013-09-28 11:09:14 Relation Name Status Comments Father Mother Other 1 Other 2 Other 3 Other 4 Social History Tobacco Use Types Packs/Day Years Used Date Smoking Tobacco: Former Cigarettes Q uit: 06/14/1979 Smokeless Tobacco: Former Quit: 06/14/2012 Tobacco Cessation:Counseling Given: No Comments:Quit smoking: Chewing tobacco Alcohol Use Standard Drinks/Week Comments Not Currently 3 (1 standard drink = 0.6 oz pur e alcohol) Hunger Vital Sign Answer Date Recorded Within the past 12 months, y ou worried that your food would run out before you got the money to buy more. Never true 10/07/19 25 Within the past 12 months, t he food you bought just didn't last and you didn't have money to get more. Never true 10/06/2024 Sex and Gender Information Value Date Recorded Sex Assigned at Not on file Legal Sex Male 9:58 AM CDT Gender Identity Male 04/06/2023 9:58 AM CDT Sexual Orientation Not on file Last Filed Vital Signs Vital Sign Reading Time Taken Comments Blood Pressure 138/88 10/06/2024 11:38 AM CDT Pulse 66 10/06/2024 11:38 AM CDT Temperature 36.5 C (97.7 F) 10/06/2024 11:38 AM CDT Respiratory Rate 18 10/06/2024 11:38 AM CDT Oxygen Saturation 98% 10/06/2024 11:38 AM CDT Inhaled Oxygen Concentration - - Weight 63.5 kg (140 lb) 10/06/2024 11:38 AM CDT Height 167.6 cm (5' 6) 10/06/2024 11:38 AM CDT Body Mass Index 22.6 10/06/2024 11:38 AM CDT Plan of Treatment Upcoming Encounters Date Type Department Care Team (Late st Contact Info) Description 03/27/2025 8:15 AM CDT Office [facility] [place] [address] [id number] Augustin Enriquez MD [facility] [place] [address] [address] [facility] [address] [place] [address] Health Maintenance Due Date Last Done Comments IPV Vaccines (2 of 3 - Adult catch-up series) 05/12/1970 04/14/1970 CT Colonography 1994 FIT-DNA (Cologuard) 1994 Fecal Immunochemical Testing (FIT) 1994 Fecal Occult Blood (FOBT) 1994 Flexible Sigmoidoscopy 1994 HCPOA Document on File 1999 COVID-19 Vaccine ( season) 2024 03/14/2023, 11/08/2022, 03/12/2022, Additional history exists RSV Vaccine (60+/) (1 - 1-dose 75+ series) 2024 Influenza Vaccine (#1) 2025 , 02/19/2022, 02/28/2021, Additional history exists Depression Screening 10/06/2025 10/06/2024, 01/12/2024, 09/23/2023, Additional history exists Eligible for Subsequent Annual Medicare Wellness Exam 10/06/2025 10/06/2024, 09/23/2023, 08/20/2022, Additional history exists Fall Screening 10/06/2025 10/06/2024, 12/14, 09/23/2023, Additional history exists Screening for Diabetes 03/31/2026 03/31/2023, 2020 Diagnostic Colonoscopy 11/18/2026 11/18/2021 DTaP/Tdap/Td Vaccines (2 - Td or Tdap) 06/10/2027 06/10/2017, 04/21/2004, 04/14/1994 Colorectal Cancer Screening 11/19/2031 Screening Colonoscopy 11/19/2031 11/18/2021 Meningococcal Vaccine (ACWY) Aged Out 07/19/1999 No longer eligible based on patient's age to complete this topic Hepatitis B Vaccines Completed 09/13/1999, 02/23/1999, 01/19/1999 Hepatitis A Vaccines Aged Out 11/15/1999, 05/17/19 99 No longer eligible based on patient's age to complete this topic Pneumococcal Vaccines (50+) Completed 05/13/2017, 1 07/01/2015 AAA Screening Discontinued 10/15/2017, 10/15/2017 Zoster (Shingles) Vaccine Completed 2019, 02/20/2020, 12/03/2011 HIB Vaccines Aged Out No longer eligi ble based on patient's age to complete this topic HPV Vaccines Aged Out No longer eligi ble based on patient's age to complete this topic Meningococcal B Vaccine Aged Out No l onger eligible based on patient's age to complete this topic Rotavirus Vaccines Aged Out No longer eligible based on patient's age to complete this topic Medical Devices Implanted Type Area Salt Machine Operator Device Identifier Shelf Expiration Date Model / Serial / Lot Lens, Christ [id number] Monofocal Posterior Chamber - [id number] Implanted:Qt y: 1 on 01/24/2024 by Jeff August MD at [facility] LOCATION INTRAOCULAR LENS, POSTERIOR CHAMBER Left: Eye 04/30/2027 CCA0T0 / [id number] / Lens, Christ Cca0t0 Monofocal Posterior Chamber - [id number] Implanted:Qt y: 1 on 02/07/2024 by Jeff August MD at [facility] LOCATION INTRAOCULAR LENS, POSTERIOR CHAMBER Right: Eye 04/29/2027 CCA0T0 / [id number] / Scr Axsos3 Vikki Ti 4x46mm - [id number] Implanted:Qt y: 2 on 09/19/2020 by Brando Diane MD Right: Humerus AURY ORTHO [id number] / / Scr Axsos Jono Ti 3.5x32mm - [id number] Implanted:Qt y: 1 on 09/19/2020 by Brando Diane MD Right: Humerus AURY ORTHO [id number] / / Scr Axsos3 Vikki Ti 4x30mm - [id number] Implanted:Qt y: 1 on 09/19/2020 by Brando Diane MD Right: Humerus AURY ORTHO [id number] / / Scr Axsos3 Vikki Ti 4x32mm - [id number] Implanted:Qt y: 1 on 09/19/2020 by Brando Diane MD Right: Humerus AURY ORTHO [id number] / / Scr Axsos3 Vikki Ti 4x42mm - [id number] Implanted:Qt y: 2 on 09/19/2020 by Brando Diane MD Right: Humerus AURY ORTHO [id number] / / Scr Axsos3 Vikki Ti 4x44mm - [id number] Implanted:Qt y: 2 on 09/19/2020 by Brando Diane MD Right: Humerus AURY ORTHO [id number] / / Impl Cartrg Urolift 2 - [id number] Implanted:Qt y: 3 on 04/15/2023 by Augustin Enriquez MD N/A: Prostate TELEFLEX Muzeek 08/07/2023 UL2-C / / [id number] Cartrg Hndl Urolift 2 - [id number] Implanted:Qt y: 2 on 04/15/2023 by Augustin Enriquez MD N/A: Prostate TELEFLEX Muzeek 12/08/2024 UL2-CHK / / [id number] Explanted Type Area Salt Machine Operator Device Identifier Shelf Expiration Date Model / Serial / Lot 3.5 Mm Cortical Screw Self Tapping Explanted:Qty: 1 on 09/19/2020 by Brando Diane MD Right: Humerus AURY ORTHO [id number] / / Scr Axsos Jono Ti 3.5x30mm - [id number] Explanted:Qty: 1 on 09/19/2020 by Brando Diane MD Right: Humerus AURY ORTHO [id number] / / Procedures Procedure Name Priority Date/Time Associated Diagnosis Comments COMPREHENSIVE METABOLIC PANEL Routine 03/31/2023 3:47 PM CDT Benign prostatic hyperplasia with lower urinary tract symptoms Frequency of micturition Trigeminal neuralgia Calculus of kidney Impacted cerumen, bilateral Encounter for other preprocedural examination COLONOSCOPY Routine 11/18/2021 12:[address] ABDOMEN / PELVIS WITH CONTRAST 10/15/2017 9:14 AM CDT from Last 3 Months or Most Recently Relevant to Health Maintenance Results * (ABNORMAL) COMPREHENSIVE METABOLIC PANEL (03/31/2023 3:47 PM CDT) [facility] SODIUM 134(L) 136 - 145 mmol/L 04/01/2023 5:21 PM CDT [facility] POTASSIUM 4.0 3.5 - 5.1 mmol/L 04/01/2023 5:21 PM CDT [facility] CHLORIDE 99 98 - 107 mmol/L 04/01/2023 5:21 PM CDT [facility] CO2 30 21 - 32 mmol/L 04/01/2023 5:21 PM CDT [facility] GLUCOSE 86 74 - 99 mg/dL 04/01/2023 5:21 PM CDT [facility] BUN 12 7 - 18 mg/dL 04/01/2023 5:21 PM CDT [facility] CREATININE 0.73 0.70 - 1.30 mg/dL 04/01/2023 5:21 PM CDT [facility] CALCIUM 9.1 8.3 - 10.3 mg/dL 04/01/2023 5:21 PM CDT [facility] TOTAL PROTEIN 6.8 6.0 - 8.2 g/dL 04/01/2023 5:21 PM CDT [facility] ALBUMIN 3.8 3.4 - 5.0 g/dL 04/01/2023 5:21 PM CDT [facility] BILIRUBIN, TOTAL 0.5 0.2 - 1.0 mg/dL 04/01/2023 5:21 PM CDT [facility] ALKALINE PHOSPHATASE 96 45 - 117 U/L 04/01/2023 5:21 PM CDT [facility] AST 19 15 - 37 U/L 04/01/2023 5:21 PM CDT [facility] ALT 26 16 - 61 U/L 04/01/2023 5:21 PM CDT [facility] ANION GAP 5 4 - 10 mmol/L 04/01/2023 5:21 PM CDT [facility] BUN / CREAT RATIO 16.5 04/01/2023 5:21 PM CDT [facility] OSMOLALITY CALCULATED 277 275 - 295 mosm/kg 04/01/2023 5:21 PM CDT [facility] GLOBULIN 3.0 g/dL 04/01/2023 5:21 PM CDT [facility] A/G RATIO 1.3 04/01/2023 5:21 PM CDT [facility] GFR: CKD-EPI 2020 CREAT >90 >60 mL/min/[1. 73_m2] 04/01/2023 5:21 PM CDT [facility] Comment:Performed at [facility], [address] [place] [address], ([phone], unless otherwise noted. 03/31/2023 3:47 PM CDT 04/01/2023 4:38 PM CDT us Augustin Enriquez MD HEM/CHEM/IMMUN-BLOOD Fi nal Result UP HISTORICAL [facility] [address] [place], [place] * COLONOSCOPY (11/18/2021 12:26 PM CDT) Anatomical Region Laterality Modality Other us No Provider Identified GI PROCEDURES Final Res ult * CT ABDOMEN / PELVIS WITH CONTRAST (10/15/2017 9:14 AM CDT) Anatomical Region Laterality Modality Abdomen, Pelvis N/A Computed Tomogra phy 10/15/2017 9:14 AM CDT Narrative 10/15/2017 6:01 PM CDT History: Lower abdominal pain for 6 months. Comparison: February 25, 2016. Technique: 100 mL of Isovue-370 were administered in the left antecubital vein. DLP is 293.19 mGy-cm. Radiation dose reduction technique was used. Findings: Lung bases: Lung bases are clear. Liver, gallbladder, spleen, pancreas, adrenals, aorta and IVC appear unremarkable. There is a nonobstructing calculus in the superior pole of the left kidney measuring 0.4 cm. Bilateral small cortical cysts are noted. Bowel: The descending colon is not distended, but does appear to have mildly thickened banuelos. There is also strandiness in the fat around it. This could represent mild degree of colitis. There is a peripherally calcified rounded mass to the left side of the aorta just caudal to the left renal artery. This mass measures 1.4 x 1.3 cm on image 44 series 2. The mass was present since July 2005. Differential diagnosis includes a calcified lymph node or a thrombosed aneurysm from one of the retroperitoneal vasculature. Pelvis: There is no inguinal hernia. No free fluid is seen in the pelvis. There is no pelvic adenopathy. Bones: Osseous structures are within normal limits. Impression: 1. Mild degree of thickening of the descending colon. This could represent mild degree of colitis without obstruction or abscess. 2. 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 Report signed by: Keon Chiu M.D. on 10/15/2017 6:01 PM Report created with [id number] Procedure Note Keon Chiu MD - 04/19/2024 History: Lower abdominal pain for 6 months. Comparison: February 25, 2016. Technique: 100 mL of Isovue-370 were administered in the left antecubital vein. DLP is 293.19 mGy-cm. Radiation dose reduction technique was used. Findings: Lung bases: Lung bases are clear. Liver, gallbladder, spleen, pancreas, adrenals, aorta and IVC appear unremarkable. There is a nonobstructing calculus in the superior pole of the left kidney measuring 0.4 cm. Bilateral small cortical cysts are noted. Bowel: The descending colon is not distended, but does appear to have mildly thickened banuelos. There is also strandiness in the fat around it. This could represent mild degree of colitis. There is a peripherally calcified rounded mass to the left side of the aorta just caudal to the left renal artery. This mass measures 1.4 x 1.3 cm on image 44 series 2. The mass was present since July 2005. Differential diagnosis includes a calcified lymph node or a thrombosed aneurysm from one of the retroperitoneal vasculature. Pelvis: There is no inguinal hernia. No free fluid is seen in the pelvis. There is no pelvic adenopathy. Bones: Osseous structures are within normal limits. Impression: 1. Mild degree of thickening of the descending colon. This could represent mild degree of colitis without obstruction or abscess. 2. 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 Report signed by: Keon Chiu M.D. on 10/15/2017 6:01 PM Report created with Tã Em B[employer] us Eugene Aguirre MD CT WITH CONTRAST Final Res ult from Last 3 Months or Most Recently Relevant to Health Maintenance Insurance MEDICARE [facility] Snipd MEDICARE [facility] FOR [facility] Care Teams [employer] F[employer] Relationship Specialty Start Date End Date Eugene Aguirre MD PCP - General 10/31/13
--- OUTSIDE RECORDS SUMMARY | 2025-02-12 17:39 | XMS_ITS | Encounter Summary ---
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 Gender Identity Male 12/26/2020 12:45 PM CDT Sexual Orientation Not on file documented as of this encounter Last Filed Vital Signs Vital Sign Reading Time Taken Comments Blood Pressure 110/68 01/28/2009 10:06 AM CDT Pulse 56 01/28/2009 10:06 AM CDT Temperature 36.5 C (97.7 F) 01/28/2009 10:06 AM CDT Respiratory Rate 20 01/28/2009 10:06 AM CDT Oxygen Saturation - - Inhaled Oxygen Concentration - - Weight 62.3 kg (137 lb 6 oz) 01/28/2009 10:06 AM CDT Height 167.6 cm (5' 6) 01/28/2009 10:06 AM CDT Body Mass Index 22.17 01/28/2009 10:06 AM CDT documented in this encounter Plan of Treatment Not on file documented as of this encounter Visit Diagnoses Not on filedocumented in this encounter Care Teams Master Tax Advisor Relationship Specialty Start Date End Date Eugene Aguirre MD PCP - General Family Medicine 10/31/13 documented as of this encounter
--- OUTSIDE RECORDS SUMMARY | 2025-02-12 17:39 | XMS_ITS | Clinical Summary ---
Author Organization [facility] Address [address] [place] [address] Care Team Providers Care Special Events Assistant Name Role Phone Eugene Aguirre MD Primary Care Provider [phone] Allergies No known active allergies Medications tamsulosin (FLOMAX) 0.4 mg extended release capsuleIndicatio ns:benign prostatic hyperplasia with lower urinary tract sx Take 0.4 mg by mouth daily after lunch 1 Active multivitamin capsuleIndicatio ns:Vitamin Deficiency Prevention Take 1 capsule by mouth every morning Active acetaminophen (TYLENOL) 325 mg tabletIndication s:Fever,Pain Take 2 tablets (650 mg total) by mouth every 4 (four) hours as needed for pain 30 tablet 1 Active Additional Information Patient taking differently: 500 mgoralAs needed, pain,Indications: Pain, Informant: Self, Reported on 05/04/2022 dutasteride (AVODART) 0.5 mg capsuleIndicatio ns:benign prostatic hyperplasia with lower urinary tract sx Take 0.5 mg by mouth every morning 2 Active hydroCHLOROthiaz alona (MICROZIDE) 12.5 mg capsuleIndicatio ns:Calcium Renal Calculi Prevention Take 12.5 mg by mouth every morning 2 Active vitamin A-vitamin C-vit E-min (Vision) tabletIndication s:Vision supplement Take 1 tablet by mouth every morning Active SAW PALMETTO ORALIndications: supplement Take 450 mg by mouth every morning Active glucosamine sulfate (GLUCOSAMINE ORAL)Indications :supplement Take 1 tablet by mouth every morning Active carBAMazepine XR (TEGretol XR) 200 mg 12 hr tabletIndication s:Trigeminal Neuralgia Take 2 tablets (400 mg total) by mouth 2 (two) times a day 90 tablet 2 Active senna-docusate (PERICOLACE) 8.6-50 mg Take 1 tablet by mouth daily 90 tablet 2 Active Additional Information Patient not taking.Reported on 03/09/2022 oxyCODONE (ROXICODONE) 5 mg immediate release tabletIndication s:Pain Take 1 tablet (5 mg total) by mouth every 4 (four) hours as needed for pain 20 tablet 2 Active Additional Information Patient not taking.Reported on 03/09/2022 BinaxNOW COVID-19 Ag Self Test kit TEST DIRECTED TODAY 2 Active Active Problems Problem Noted Date Diagnosed Date Subconjunctival hemorrhage of left eye 5 Trigeminal neuralgia of left side of face 2024 Age-related nuclear cataract, bilateral 01/24/20 24 Benign prostatic hyperplasia with urinary freque ncy 04/07/2021 Closed fracture of proximal end of right humerus 09/19/2020 Trigeminal neuralgia 09/17/2018 Encounters Date Type Department Care Team Description 02/12/2025 5:30 PM CDT Office Visit [facility] at [address] [address] Wilma Juarez PA Foreign body of right hand, initial encounter (Primary Dx) from Last 3 Months Immunizations Immunization Administration Dates Next Due Anthrax 04/11/2003, 3,03/28/2002,08/29,07/20/1999,07/06/1999 COVID-19 mRNA ([employer]) 0.3 m L (30 mcg) vaccine (12 years and up) 03/14/2023 Hep A, Adult 11/15/1999,05/17/1999 Hep B Vaccine 09/13/1999,02/23/1999,01/19/1999 Influenza, Quadrivalent, Cecelia l Culture-based MDCK, Antibiotic Free, Intramuscular 04/04/2019 Influenza, Quadrivalent, Hig h Dose, Preservative Free, Intrr 03/23/2023 Influenza, Quadrivalent, Spl it, Intramuscular 02/19/2022,02/28/2021,03/19/2014,04/05,04/14/2012,03/22/2011,05/02/2004 Influenza, Quadrivalent, Spl it, Preservative Free, Intramuscular 02/20/2020,05/01/2016,04/15/2015 Influenza, Split 03/19/2014,04/05/2013 Influenza, Trivalent, High D ose, Split, Preservative Free, Intramuscular 04/08/2018,04/15/2017 Influenza, Trivalent, IM (MDV) 4,04/14/2012,03/22/2011,05/02 Influenza, Unspecified 04/04/2019,04/07/2018, Influenza, Whole 04/20/2005 Meningococcal Polysaccharide (Menomune) 07/19/1999 Moderna Sars-cov-2 Bivalent Vaccine 50 Mcg/0.5 mL (12+ YRS)-Blue/Schmitz 11/08/2022 OPV 04/14/1970 PPD TEST 07/15/2002, 1,11/13/2000,05/17 Pneumococcal Conjugate PCV 13 05/01/2016 Pneumococcal Polysaccharide PPV23 05/13/2017 Smallpox 09/08/2001 Td, adsorbed 04/21/2004,04/14/1994 Tdap 06/10/2017 Typhoid Inactivated 04/22/2005 Typhoid, Unspecified 04/22/2005,07/15/19 03,11/13/2000,01/19,07/15/1996 Yellow Fever 08/12/1994 ZOSTER LIVE 12/03/2011 ZOSTER Recombinant 04/29/2020,02/20/2020 Surgical History Surgery Date Site/Laterality Comments ORIF HUMERUS FRACTURE 09/12/2020 - 10/11/2020 Right COLONOSCOPY VASECTOMY CRANIOTOMY Medical History Medical History Date Comments Trigeminal neuralgia Nephrolithiasis Family History Medical History Relation Name Comments Hypertension Father Lung cancer Father Cancer Maternal Grandfather Alzheimer's disease Maternal Grandmother Memory loss Maternal Grandmother Hypertension Mother Anesthesia problems Neg Hx Relation Name Status Comments Father Maternal Grandfather Maternal Grandmother Mother Social History Tobacco Use Types Packs/Day Years Used Date Smoking Tobacco: Former Cigarettes 0.5 7 1 968 - 1975 Smokeless Tobacco: Former Chew Quit: 2006 Tobacco Cessation:Counseling Given: Not Answered Alcohol Use Standard Drinks/Week Comments Yes 7 [...] on file 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 Gender Identity Male 01/31/2021 7:26 PM CDT Sexual Orientation Not on file Occupation Industry Job Start Date Job End Date retired Not on file Not on file Not on file Obstetrics History Last Filed Vital Signs Vital Sign Reading Time Taken Comments Blood Pressure 164/94 02/12/2025 5:02 PM CDT Pulse 60 02/12/2025 5:02 PM CDT Temperature 36.8 C (98.3 F) 02/12/2025 5:02 PM CDT Respiratory Rate 18 02/12/2025 5:02 PM CDT Oxygen Saturation 98% 02/12/2025 5:02 PM CDT Inhaled Oxygen Concentration - - Weight 61.2 kg (135 lb) 02/12/2025 5:02 PM CDT Height 167.6 cm (5' 6) 03/09/2022 2:56 PM CDT Body Mass Index 21.79 03/09/2022 2:56 PM CDT Plan of Treatment Health Maintenance Due Date Last Done Comments Colon Cancer Screening-Colonoscopy 1950 Depression Screening 1950 Hepatitis C Screening 1950 Well Visit 65+ 2014 Fall Risk Assessment 02/28/2023 02/28/2022 Covid-19 Vaccine (2024-2 6 season) 2025 03/14/2023, 11/08/2022, 09/19/2021, Additional history exists Influenza Vaccine (#1) 2025 , 02/19/2022, 02/28/2021, Additional history exists DTaP/Tdap/Td Vaccine (2 - Td or Tdap) 06/10/2027 06/10/2017, 04/21/2004, 04/14/1994 Hepatitis B Screening Completed 09/13/1999 , 02/23/1999, 01/19/1999 Pneumococcal vaccine 65+ Completed 05/13/2017, 04/14 Abdominal Aortic Aneurysm (A AA) Screen Completed 10/15/2017, 02/25/2016 Zoster Vaccine Completed 04/29/2020, 01/2020, 12/03/2011 Medical Devices Implanted Type Area Electrical Products Sales Engineer Device Identifier Shelf Expiration Date Model / Serial / Lot [employer] 1mm 6 Hole Straight Maxillofacial Regular Plate Bone Titanium - [id number] Implanted:Qty: 1 on 02/27/2022 by Eugene Velez MD at [facility] Plate Right: Suboccipital [employer] / / [employer] Od2 Mm L[address] Maxillofacial Screw Bone Titanium - [id number] Implanted:Qty: 2 on 02/27/2022 by Eugene Velez MD at [facility] Screw Right: Suboccipital [employer] / / [employer] 6191-1-010 Simplex P Radiopaque Full Dose Cement Bone Sterile - [id number] Implanted:Qty: 1 on 02/11/2021 by Eugene Velez MD at [facility] Right: Cranial [employer] 03/13/2022 6191-1-0 10 / / [employer] 1mm 6 Hole Straight Maxillofacial Regular Plate Bone Titanium - [id number] Implanted:Qty: 1 on 02/11/2021 by Eugene Velez MD at [facility] Right: Cranial [employer] / / [employer] Od2 Mm L[address] Maxillofacial Screw Bone Titanium - [id number] Implanted:Qty: 2 on 02/11/2021 by Eugene Velez MD at [facility] Right: Cranial [employer] / / [employer] Simplex P Radiopaque Full Dose Cement Bone Sterile 6191-1-010 - [id number] Implanted:Qty: 1 on 02/27/2022 by Eugene Velez MD at [facility] Right: Suboccipital [employer] 05/13/2024 6191-1-0 10 [id number] Insurance MEDICARE [id number] MEDICARE FOR LIFE Advance Directives For more information, please contact: [phone] * Full Code (Latest Code Status on File) Date Activated Date Inactivated Comments 02/27/2022 3:29 PM 02/28/2022 8:46 PM * Full Code Date Activated Date Inactivated Comments 02/11/2021 5:22 PM 02/13/2021 4:21 PM Care Teams Special Events Assistant Relationship Specialty Start Date End Date Eugene Aguirre MD [address] [place] [id number] PCP - General Family Practice 08/09/18
--- OUTSIDE RECORDS SUMMARY | 2025-02-12 17:39 | XMS_ITS | Encounter Summary ---
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 Gender Identity Male 12/26/2020 12:45 PM CDT Sexual Orientation Not on file documented as of this encounter Last Filed Vital Signs Vital Sign Reading Time Taken Comments Blood Pressure 104/70 08/16/2007 10:44 AM MENTAL HEALTH PROGRAM MANAGER Pulse 72 08/16/2007 10:44 AM MENTAL HEALTH PROGRAM MANAGER Temperature - - Respiratory Rate 20 08/16/2007 10:44 AM MENTAL HEALTH PROGRAM MANAGER Oxygen Saturation - - Inhaled Oxygen Concentration - - Weight 63.5 kg (140 lb) 08/16/2007 10:44 AM MENTAL HEALTH PROGRAM MANAGER Height - - Body Mass Index 22.6 04/08/2006 4:14 PM CDT documented in this encounter Plan of Treatment Not on file documented as of this encounter Visit Diagnoses Not on filedocumented in this encounter Care Teams Band Instrument Repairer Relationship Specialty Start Date End Date Eugene Aguirre MD PCP - General Family Medicine 10/31/13 documented as of this encounter
[2025-02-12] MEDS: TETANUS,DIPHTHERIA,AC PERTUSSIS ADULT (0.5 ML) BOOSTRIX IM (17:53)
[2025-02-12] MEDS: LIDO 1%/EPINEPHRINE 1:100,000 20 ML VIAL 3 ML INFILTRATE (17:55)
--- NOTE | 2025-02-12 17:55 | ED.UPPEXIN ---
HPI - Extremity Injury (Upper) General Chief Complaint: Extremity Injury, Upper Stated Complaint: fishing hook in hand Time Seen by Provider: 02/12/25 17:38 History of Present Illness HPI narrative: The patient is a 74-year-old male who presents ER with a fishhook stuck in his right hand. It is in the 1st webspace. No numbness or tingling. Unknown last tetanus. Related Data Home Medications ?Medication ?Instructions ?Recorded ?Confirmed ?Last Taken ?Type dutasteride 0.5 mg capsule 0.5 mg PO DAILY 06/16/21 01/09/23 Unknown History tamsulosin 0.4 mg capsule 0.4 mg PO BID 06/16/21 01/09/23 Unknown History hydrochlorothiazide 12.5 mg capsule 12.5 mg PO DAILY 01/09/23 01/09/23 Unknown History Allergies Allergy/AdvReac Type Severity Reaction Status Date / Time No Known Allergies Allergy Verified 02/12/25 17:43 Review of Systems Constitutional: Constitutional: Reports no additional constitutional complaints Musculoskeletal: Musculoskeletal: Reports no additional musculoskeletal complaints PMFSH Past Medical History Medical History (Updated 02/12/25 @ 18:04 by Dexter Jimenez MD) Trigeminal neuralgia of right side of face Surgical History Surgical History (Updated 01/09/23 @ 12:18 by Elana Rondon APRN) Hx of brain surgery Social History Social History Gender identity (if verbalized by the patient): Male Exam Narrative: GENERAL: Well-appearing, well-nourished, and in no acute distress. HEAD: Normocephalic, atraumatic. EXTREMITIES: Normal range of motion. No edema. Iaeger in the 1st web space of the right hand. SKIN: Warm, dry, no rash. NEURO: Alert and oriented x3. PSYCH: Normal mood and affect. Course Course Emergency Course: Tetanus updated. Hand wash with soap and water after foreign body removal. Will give oral antibiotic here and for home to prevent infection. Vital Signs Vital signs: Vital Signs Temperature 97.8 F 02/12/25 17:38 Pulse Rate 58 L 02/12/25 17:38 Respiratory Rate 18 02/12/25 17:38 Blood Pressure 191/92 H 02/12/25 17:38 Pulse Oximetry 98 02/12/25 17:38 Oxygen Delivery Room Air 02/12/25 17:38 Temperature 97.8 F 02/12/25 17:38 Pulse Rate 58 L 02/12/25 17:38 Respiratory Rate 18 02/12/25 17:38 Blood Pressure 191/92 H 02/12/25 17:38 Pulse Oximetry 98 02/12/25 17:38 Oxygen Delivery Room Air 02/12/25 17:38 Procedures Foreign Body Removal Foreign Body #1: Foreign Body Removal Date: 02/12/25 Foreign Body Removal Time: 17:55 Site: hand Description of foreign body: fish hook Sedation/Analgesia: none Technique: manual removal Confirmed by:: direct visualization Complications: none Post-procedure exam: awake, alert Discharge Plan Discharge Clinical Impression: Foreign body hand Patient Disposition: Home Condition: Stable Additional Instructions: You had a fishhook removed. Your risk of developing infection. Monitor the area for redness/swelling/warmth/drainage. Patient Language: Singaporean Prescriptions: New amoxicillin-pot clavulanate 875-125 mg tablet 1 tablet PO Q12H Qty: 14 0RF No Action tamsulosin 0.4 mg capsule 0.4 mg PO BID dutasteride 0.5 mg capsule 0.5 mg PO DAILY hydrochlorothiazide 12.5 mg capsule 12.5 mg PO DAILY cephalexin 500 mg capsule 500 mg PO Q6H 7 Days Qty: 28 0RF Follow-up/Referrals: PHYSICIAN NOT ON STAFF,NONSTAFF [Primary Care Provider]
== END 2025-02-12 18:12 | disposition home or self-care (01) ==
PROVIDERS: Emergency Provider Emergency Medicine
DX: M79.5 Residual foreign body in soft tissue (principal); W45.8XXA Other foreign body or object entering through skin, initial encounter; W26.8XXA Contact with other sharp object(s), not elsewhere classified, initial encounter; Z23 Encounter for immunization
CPT/HCPCS: 90471; 90715; 99283; A9270; J2004